=== PATIENT | male | born 1940 | race Caucasian/White ===

== ENCOUNTER 2022-10-30 12:24 | Inpatient (IN) ==
[2022-10-30] MEDS ORDERED: SODIUM CHLORIDE 0.9% 1000ML 500 ML IV ONE ×2 (12:45→14:35)
--- NOTE | 2022-10-30 12:52 | Emergency Department Note ---
Impression & Plan Altered mental status, Somnolence, Acute dehydration, Elevated lactic acid level ED Provider Note NAME: RAIN BRAY AGE: 82 SEX: M : 1940 ARRIVES VIA: Ambulance INFORMANT: [Nursing, EMS] ED PROVIDER(S): [Von Griffith MD] CHIEF COMPLAINT: Unresponsive HISTORY OF PRESENT ILLNESS: The patient is an 82-year-old male who has dementia. He is a DNR. Apparently, he was harder to wake up this morning but then seemed okay at breakfast. He went back to his room for a nap, he did receive some medications prior to laying down. The patient since laying down has been much more somnolent and will not seem to wake up. He is not quite himself. He is described as lethargic. BSG was in the 100s as per EMS. The patient can give no history. The history was obtained from the nurses and EMS. Given the circumstances, no further history obtainable. PMHx/PSHx: See Below SOCIAL HISTORY: See Below. PHYSICAL EXAM: GENERAL: Patient is in no acute distress. HEENT: No acute trauma, normocephalic atraumatic, mucous membranes moist, no nasal congestion. NECK: No stridor, no adenopathy, no meningismus, trachea is midline. LUNGS: Clear to auscultation bilaterally when listening anterior, breath sounds are equal, no respiratory distress. HEART: I cannot really assess heart tones, heart tones are quite distant ABDOMEN: Soft, nontender, bowel sounds positive, no peritonitis. EXTREMITIES: No cyanosis or edema, full range of motion of all the joints without pain or difficulty, no signs for acute trauma. NEUROLOGIC: Somnolent but awakes to loud voice or painful stimuli. Does move all extremities. SKIN: No rash, no jaundice, no diaphoresis. DIFFERENTIAL DIAGNOSIS: Stroke, intracranial bleeding, electrolyte imbalance, dehydration, infection, sepsis, among others. EMERGENCY DEPARTMENT COURSE/PROCEDURES: Prior/Outside records reviewed: EMS records. ECG per my interpretation: Indication was altered mental state. The ECG shows a sinus rhythm with a first-degree AV block. The rate is 81. There is significant baseline artifact. There is no ST elevation. No PVCs. QTc is 476. A potential old septal infarct is seen, potential old inferior infarct is seen. Compared to an ECG from 28 April 2007, lateral T wave inversion is now present. Criteria for old septal infarct are now present. Continuous Cardiac Monitoring per my interpretation: An order was placed for continuous cardiac monitoring. The monitor shows a rate of 82 with sinus rhythm with a first-degree block. MEDICAL DECISION MAKING: There is no leukocytosis or concerning anemia. There is a normal platelet count. Creatinine was elevated at 1.77, this appears baseline for the patient. Lactic acid level was elevated consistent with infection or potentially dehydration. No concerning liver enzyme elevation. Ammonia level was not elevated. Patient's TSH was slightly high however, the T4 was normal. ECG showed a sinus rhythm, no obvious acute ischemia. Cardiac enzyme testing x1 was not consistent with acute cardiac injury. Urinalysis did not show infection. COVID, influenza and RSV test were negative. Brain CT showed no acute bleed or mass effect. CT did suggest some chronic findings. Chest x-ray per my review did not show obvious pneumonia, no concerning CHF. The patient received IV saline, 1 L. He has been resting comfortably. The cause for the change in mental status is not clear. Dehydration, medication reaction are certainly possibilities. Stroke is a possibility although, he does move all extremities fairly equally. I do think further care/work-up is warranted. I spoke with the patient and his family, I talked to case management, the on-call hospitalist was consulted. DISPOSITION: The patient's presentation and findings warrant a hospital stay. Past Med/Surg History Medical History Dementia DVT prophylaxis Social History Smoking Status: Unknown if ever smoked Allergies Allergies Allergy/AdvReac Type Severity Reaction Status Date / Time No Known Allergies Allergy Mild Verified 10/30/22 16:25 Home Meds Home Medications Medication Instructions Recorded Confirmed acetaminophen 325 mg tablet 650 mg PO Q6H PRN PAIN/FEVER > 101F 10/30/22 10/30/22 (Tylenol) aspirin 81 mg tablet,delayed 81 mg PO QAM 10/30/22 10/30/22 release atorvastatin 10 mg tablet 10 mg PO HS 10/30/22 10/30/22 finasteride 5 mg tablet 5 mg PO HS 10/30/22 10/30/22 isosorbide mononitrate 30 mg 30 mg PO QAM 10/30/22 10/30/22 tablet,extended release 24 hr metoprolol tartrate 25 mg tablet 12.5 mg PO BID 10/30/22 10/30/22 olanzapine 2.5 mg tablet 2.5 mg PO Q6H PRN 10/30/22 10/30/22 AGITATION/AGGRESSION quetiapine 25 mg tablet (Seroquel) See Rx Instructions .Route .COMPLEX 10/30/22 10/30/22 sennosides 8.6 mg tablet (senna) 17.2 mg PO HS PRN Constipation 10/30/22 10/30/22 tamsulosin 0.4 mg capsule (Flomax) 0.4 mg PO QAM 10/30/22 10/30/22 Results & Data (ED) Vital Signs Vital Signs - 24 hr 10/30/22 12:40 10/30/22 12:17 10/30/22 12:28 Temperature 35.4 C L Temperature Source Axillary Pulse Rate 73 73 Pulse Rate [Apical] Pulse Rate from SpO2 Sensor Pulse Rhythm Regular Pulse Rhythm [Apical] Pulse Strength [Apical] Respiratory Rate 27 H Respiratory Effort / Characteristics Non-Labored Spontaneous Respiratory Depth Normal Respiratory Pattern Regular Blood Pressure 120/66 Blood Pressure [Right Arm] Blood Pressure Mean 84 Blood Pressure Mean [Right Arm] Blood Pressure Position Lying Pulse Oximetry 96 96 Oxygen Delivery Method Room Air Room Air Oxygen Flow Rate 0 0 Sepsis Recent Fever Within 48 Hours No Sepsis New/Unexplained Change in Mental Status Yes Sepsis Action Taken by Nursing Physician Notified Oxygen Flow Rate - Titration 0 Pulse Oximetry Post Tiitration 96 10/30/22 12:46 10/30/22 12:39 10/30/22 12:40 Temperature Temperature Source Pulse Rate 73 74 Pulse Rate [Apical] Pulse Rate from SpO2 Sensor 73 74 Pulse Rhythm Pulse Rhythm [Apical] Pulse Strength [Apical] Respiratory Rate 12 18 Respiratory Effort / Characteristics Respiratory Depth Respiratory Pattern Blood Pressure Blood Pressure [Right Arm] Blood Pressure Mean Blood Pressure Mean [Right Arm] Blood Pressure Position Pulse Oximetry 96 94 95 Oxygen Delivery Method Room Air Room Air Room Air Oxygen Flow Rate Sepsis Recent Fever Within 48 Hours Sepsis New/Unexplained Change in Mental Status Sepsis Action Taken by Nursing Oxygen Flow Rate - Titration Pulse Oximetry Post Tiitration 10/30/22 12:50 10/30/22 13:00 10/30/22 13:10 Temperature Temperature Source Pulse Rate 76 77 80 Pulse Rate [Apical] Pulse Rate from SpO2 Sensor 76 77 80 Pulse Rhythm Pulse Rhythm [Apical] Pulse Strength [Apical] Respiratory Rate 20 19 16 Respiratory Effort / Characteristics Respiratory Depth Respiratory Pattern Blood Pressure Blood Pressure [Right Arm] Blood Pressure Mean Blood Pressure Mean [Right Arm] Blood Pressure Position Pulse Oximetry 95 95 95 Oxygen Delivery Method Room Air Room Air Room Air Oxygen Flow Rate Sepsis Recent Fever Within 48 Hours Sepsis New/Unexplained Change in Mental Status Sepsis Action Taken by Nursing Oxygen Flow Rate - Titration Pulse Oximetry Post Tiitration 10/30/22 13:20 10/30/22 13:38 10/30/22 13:40 Temperature Temperature Source Pulse Rate 72 93 H 78 Pulse Rate [Apical] Pulse Rate from SpO2 Sensor 71 77 Pulse Rhythm Pulse Rhythm [Apical] Pulse Strength [Apical] Respiratory Rate 11 L 11 L 16 Respiratory Effort / Characteristics Respiratory Depth Respiratory Pattern Blood Pressure Blood Pressure [Right Arm] Blood Pressure Mean Blood Pressure Mean [Right Arm] Blood Pressure Position Pulse Oximetry 97 98 Oxygen Delivery Method Oxygen Flow Rate Sepsis Recent Fever Within 48 Hours Sepsis New/Unexplained Change in Mental Status Sepsis Action Taken by Nursing Oxygen Flow Rate - Titration Pulse Oximetry Post Tiitration 10/30/22 14:28 10/30/22 14:00 10/30/22 14:30 Temperature Temperature Source Pulse Rate 83 Pulse Rate [Apical] 73 Pulse Rate from SpO2 Sensor 85 Pulse Rhythm Pulse Rhythm [Apical] Regular Pulse Strength [Apical] Normal Respiratory Rate 18 24 Respiratory Effort / Characteristics Non-Labored Respiratory Depth Normal Respiratory Pattern Regular Blood Pressure 113/64 Blood Pressure [Right Arm] 113/64 Blood Pressure Mean 80 Blood Pressure Mean [Right Arm] 80 Blood Pressure Position Pulse Oximetry 100 98 Oxygen Delivery Method Room Air Oxygen Flow Rate Sepsis Recent Fever Within 48 Hours Sepsis New/Unexplained Change in Mental Status Sepsis Action Taken by Nursing Oxygen Flow Rate - Titration Pulse Oximetry Post Tiitration 10/30/22 14:30 10/30/22 15:00 10/30/22 15:00 Temperature Temperature Source Pulse Rate 73 81 Pulse Rate [Apical] Pulse Rate from SpO2 Sensor 71 82 Pulse Rhythm Pulse Rhythm [Apical] Pulse Strength [Apical] Respiratory Rate 14 16 Respiratory Effort / Characteristics Respiratory Depth Respiratory Pattern Blood Pressure 139/74 Blood Pressure [Right Arm] Blood Pressure Mean 95 Blood Pressure Mean [Right Arm] Blood Pressure Position Pulse Oximetry 96 98 Oxygen Delivery Method Room Air Room Air Oxygen Flow Rate Sepsis Recent Fever Within 48 Hours Sepsis New/Unexplained Change in Mental Status Sepsis Action Taken by Nursing Oxygen Flow Rate - Titration Pulse Oximetry Post Tiitration 10/30/22 15:30 10/30/22 15:30 10/30/22 16:00 Temperature Temperature Source Pulse Rate 79 Pulse Rate [Apical] Pulse Rate from SpO2 Sensor 75 Pulse Rhythm Pulse Rhythm [Apical] Pulse Strength [Apical] Respiratory Rate 10 L Respiratory Effort / Characteristics Respiratory Depth Respiratory Pattern Blood Pressure 113/67 101/61 Blood Pressure [Right Arm] Blood Pressure Mean 82 74 Blood Pressure Mean [Right Arm] Blood Pressure Position Pulse Oximetry 94 Oxygen Delivery Method Room Air Oxygen Flow Rate Sepsis Recent Fever Within 48 Hours Sepsis New/Unexplained Change in Mental Status Sepsis Action Taken by Nursing Oxygen Flow Rate - Titration Pulse Oximetry Post Tiitration 10/30/22 16:00 10/30/22 16:40 10/30/22 16:30 Temperature Temperature Source Pulse Rate 71 74 Pulse Rate [Apical] Pulse Rate from SpO2 Sensor 72 Pulse Rhythm Pulse Rhythm [Apical] Pulse Strength [Apical] Respiratory Rate 16 Respiratory Effort / Characteristics Respiratory Depth Respiratory Pattern Blood Pressure 129/64 Blood Pressure [Right Arm] Blood Pressure Mean 85 Blood Pressure Mean [Right Arm] Blood Pressure Position Pulse Oximetry 95 Oxygen Delivery Method Oxygen Flow Rate Sepsis Recent Fever Within 48 Hours Sepsis New/Unexplained Change in Mental Status Sepsis Action Taken by Nursing Oxygen Flow Rate - Titration Pulse Oximetry Post Tiitration 10/30/22 16:30 10/30/22 17:00 10/30/22 17:00 Temperature Temperature Source Pulse Rate 75 79 Pulse Rate [Apical] Pulse Rate from SpO2 Sensor 76 77 Pulse Rhythm Pulse Rhythm [Apical] Pulse Strength [Apical] Respiratory Rate 14 15 Respiratory Effort / Characteristics Respiratory Depth Respiratory Pattern Blood Pressure 133/64 Blood Pressure [Right Arm] Blood Pressure Mean 87 Blood Pressure Mean [Right Arm] Blood Pressure Position Pulse Oximetry 99 Oxygen Delivery Method Room Air Oxygen Flow Rate Sepsis Recent Fever Within 48 Hours Sepsis New/Unexplained Change in Mental Status Sepsis Action Taken by Nursing Oxygen Flow Rate - Titration Pulse Oximetry Post Tiitration 10/30/22 17:30 10/30/22 17:31 10/30/22 17:31 Temperature Temperature Source Pulse Rate 91 H 93 H Pulse Rate [Apical] Pulse Rate from SpO2 Sensor 90 95 H Pulse Rhythm Pulse Rhythm [Apical] Pulse Strength [Apical] Respiratory Rate 16 21 Respiratory Effort / Characteristics Respiratory Depth Respiratory Pattern Blood Pressure 152/89 H Blood Pressure [Right Arm] Blood Pressure Mean 110 Blood Pressure Mean [Right Arm] Blood Pressure Position Pulse Oximetry 97 96 Oxygen Delivery Method Room Air Room Air Oxygen Flow Rate Sepsis Recent Fever Within 48 Hours Sepsis New/Unexplained Change in Mental Status Sepsis Action Taken by Nursing Oxygen Flow Rate - Titration Pulse Oximetry Post Tiitration 10/30/22 18:00 10/30/22 18:00 10/30/22 18:30 Temperature 36.8 C Temperature Source Pulse Rate 83 Pulse Rate [Apical] Pulse Rate from SpO2 Sensor 85 Pulse Rhythm Pulse Rhythm [Apical] Pulse Strength [Apical] Respiratory Rate 12 Respiratory Effort / Characteristics Respiratory Depth Respiratory Pattern Blood Pressure 138/68 167/82 H Blood Pressure [Right Arm] Blood Pressure Mean 91 110 Blood Pressure Mean [Right Arm] Blood Pressure Position Pulse Oximetry 98 Oxygen Delivery Method Room Air Oxygen Flow Rate Sepsis Recent Fever Within 48 Hours Sepsis New/Unexplained Change in Mental Status Sepsis Action Taken by Nursing Oxygen Flow Rate - Titration Pulse Oximetry Post Tiitration 10/30/22 18:30 Temperature Temperature Source Pulse Rate Pulse Rate [Apical] Pulse Rate from SpO2 Sensor 91 H Pulse Rhythm Pulse Rhythm [Apical] Pulse Strength [Apical] Respiratory Rate Respiratory Effort / Characteristics Respiratory Depth Respiratory Pattern Blood Pressure Blood Pressure [Right Arm] Blood Pressure Mean Blood Pressure Mean [Right Arm] Blood Pressure Position Pulse Oximetry 95 Oxygen Delivery Method Oxygen Flow Rate Sepsis Recent Fever Within 48 Hours Sepsis New/Unexplained Change in Mental Status Sepsis Action Taken by Nursing Oxygen Flow Rate - Titration Pulse Oximetry Post Tiitration Home Medications Current Medication List: was personally reviewed by me Laboratory Data Attestation: I reviewed the patient's lab results. 10/30/22 12:55 10/30/22 12:55 Lab Results 10/30/22 10/30/22 10/30/22 Range/Units 12:30 12:52 12:52 WBC (4.8-10.8) K/ul RBC (4.70-6.10) M/uL Hgb (14.0-18.0) g/dl Hct (42.0-52.0) % MCV (80.0-100.0) fL MCH (25.0-34.0) pg MCHC (32.0-36.0) g/dL RDW Std Deviation (36.4-46.3) fL RDW Coeff of Tang (11.5-14.5) % Plt Count (130-400) K/uL MPV (9.4-12.4) fL Immature Gran % (Auto) % Neut % (Auto) % Lymph % (Auto) % Terry % (Auto) % Eos % (Auto) % Baso % (Auto) % Neut # (Auto) (1.40-6.50) K/uL Lymph # (Auto) (1.2-3.4) K/uL Terry # (Auto) (0.11-0.59) K/uL Eos # (Auto) (0-0.50) K/uL Baso # (Auto) (0-0.2) K/uL Immature Gran # (Auto) (0.01-0.20) K/uL Sodium (136-145) mmol/L Potassium (3.5-5.1) mmol/L Chloride (98-107) mmol/L Carbon Dioxide (21-32) mmol/L Anion Gap (3-11) BUN (6-23) mg/dl Creatinine (0.6-1.4) mg/dl Est Cr Clr Drug Dosing Est GFR ( Amer) ml/min Est GFR (Non-Af Amer) ml/min BUN/Creatinine Ratio (10-20) Glucose (70-99(Fasting)) mg/dl POC Glucose 168 H (70-99) mg/dl Lactate 3.3 H* (0.4-2.0) mmol/L Calcium (8.5-10.1) mg/dl Magnesium (1.7-2.4) mg/dl Total Bilirubin (0.2-1.0) mg/dl AST (13-39) U/L ALT (7-52) U/L Alkaline Phosphatase (34-104) U/L Ammonia 43.0 (18-72) umol/L Troponin I High Sens (0-20) pg/ml Total Protein (6.0-8.3) gm/dl Albumin (3.4-5.0) gm/dl Globulin (2.5-4.0) gm/dl Albumin/Globulin Ratio (0.9-2) TSH (0.300-4.500) uIu/ml Free T4 (0.61-1.60) ng/dl Urine Color Urine Appearance (Clear) Urine pH (4.5-7.5) Ur Specific [place] (1.000-1.030) Urine Protein (Negative) Urine Glucose (UA) (Negative) Urine Ketones (Negative) Urine Blood (Negative) Urine Nitrite (Negative) Urine Bilirubin (Negative) Urine Urobilinogen (Negative) Ur Leukocyte Esterase (Negative) SARS-CoV-2 (PCR) (Negative) Influenza Type A (PCR) (Neg) Influenza Type B (PCR) (Neg) RSV (RT-PCR) (Neg) 10/30/22 10/30/22 10/30/22 Range/Units 12:55 12:55 12:55 WBC 6.33 (4.8-10.8) K/ul RBC 4.90 (4.70-6.10) M/uL Hgb 14.7 (14.0-18.0) g/dl Hct 44.7 (42.0-52.0) % MCV 91.2 (80.0-100.0) fL MCH 30.0 (25.0-34.0) pg MCHC 32.9 (32.0-36.0) g/dL RDW Std Deviation 46.4 H (36.4-46.3) fL RDW Coeff of Tang 13.8 (11.5-14.5) % Plt Count 154 (130-400) K/uL MPV 11.7 (9.4-12.4) fL Immature Gran % (Auto) 0.8 % Neut % (Auto) 75.1 % Lymph % (Auto) 14.8 % Terry % (Auto) 8.4 % Eos % (Auto) 0.6 % Baso % (Auto) 0.3 % Neut # (Auto) 4.75 (1.40-6.50) K/uL Lymph # (Auto) 0.94 L (1.2-3.4) K/uL Terry # (Auto) 0.53 (0.11-0.59) K/uL Eos # (Auto) 0.04 (0-0.50) K/uL Baso # (Auto) 0.02 (0-0.2) K/uL Immature Gran # (Auto) 0.05 (0.01-0.20) K/uL Sodium 141 (136-145) mmol/L Potassium 4.4 (3.5-5.1) mmol/L Chloride 106 (98-107) mmol/L Carbon Dioxide 27 (21-32) mmol/L Anion Gap 8 (3-11) BUN 19 (6-23) mg/dl Creatinine 1.77 H (0.6-1.4) mg/dl Est Cr Clr Drug Dosing Not Reportable Est GFR ( Amer) 40.0 ml/min Est GFR (Non-Af Amer) 34.5 ml/min BUN/Creatinine Ratio 10.7 (10-20) Glucose 179 H (70-99(Fasting)) mg/dl POC Glucose (70-99) mg/dl Lactate (0.4-2.0) mmol/L Calcium 9.3 (8.5-10.1) mg/dl Magnesium 2.4 (1.7-2.4) mg/dl Total Bilirubin 0.9 (0.2-1.0) mg/dl AST 13 (13-39) U/L ALT 9 (7-52) U/L Alkaline Phosphatase 64 (34-104) U/L Ammonia (18-72) umol/L Troponin I High Sens 10.0 (0-20) pg/ml Total Protein 6.8 (6.0-8.3) gm/dl Albumin 3.9 (3.4-5.0) gm/dl Globulin 2.9 (2.5-4.0) gm/dl Albumin/Globulin Ratio 1.3 (0.9-2) TSH 8.258 H (0.300-4.500) uIu/ml Free T4 1.01 (0.61-1.60) ng/dl Urine Color Urine Appearance (Clear) Urine pH (4.5-7.5) Ur Specific [place] (1.000-1.030) Urine Protein (Negative) Urine Glucose (UA) (Negative) Urine Ketones (Negative) Urine Blood (Negative) Urine Nitrite (Negative) Urine Bilirubin (Negative) Urine Urobilinogen (Negative) Ur Leukocyte Esterase (Negative) SARS-CoV-2 (PCR) (Negative) Influenza Type A (PCR) (Neg) Influenza Type B (PCR) (Neg) RSV (RT-PCR) (Neg) 10/30/22 10/30/22 10/30/22 Range/Units 14:10 14:10 14:59 WBC (4.8-10.8) K/ul RBC (4.70-6.10) M/uL Hgb (14.0-18.0) g/dl Hct (42.0-52.0) % MCV (80.0-100.0) fL MCH (25.0-34.0) pg MCHC (32.0-36.0) g/dL RDW Std Deviation (36.4-46.3) fL RDW Coeff of Tang (11.5-14.5) % Plt Count (130-400) K/uL MPV (9.4-12.4) fL Immature Gran % (Auto) % Neut % (Auto) % Lymph % (Auto) % Terry % (Auto) % Eos % (Auto) % Baso % (Auto) % Neut # (Auto) (1.40-6.50) K/uL Lymph # (Auto) (1.2-3.4) K/uL Terry # (Auto) (0.11-0.59) K/uL Eos # (Auto) (0-0.50) K/uL Baso # (Auto) (0-0.2) K/uL Immature Gran # (Auto) (0.01-0.20) K/uL Sodium (136-145) mmol/L Potassium (3.5-5.1) mmol/L Chloride (98-107) mmol/L Carbon Dioxide (21-32) mmol/L Anion Gap (3-11) BUN (6-23) mg/dl Creatinine (0.6-1.4) mg/dl Est Cr Clr Drug Dosing Est GFR ( Amer) ml/min Est GFR (Non-Af Amer) ml/min BUN/Creatinine Ratio (10-20) Glucose (70-99(Fasting)) mg/dl POC Glucose (70-99) mg/dl Lactate 2.9 H* (0.4-2.0) mmol/L Calcium (8.5-10.1) mg/dl Magnesium (1.7-2.4) mg/dl Total Bilirubin (0.2-1.0) mg/dl AST (13-39) U/L ALT (7-52) U/L Alkaline Phosphatase (34-104) U/L Ammonia (18-72) umol/L Troponin I High Sens (0-20) pg/ml Total Protein (6.0-8.3) gm/dl Albumin (3.4-5.0) gm/dl Globulin (2.5-4.0) gm/dl Albumin/Globulin Ratio (0.9-2) TSH (0.300-4.500) uIu/ml Free T4 (0.61-1.60) ng/dl Urine Color Yellow Urine Appearance Clear (Clear) Urine pH 5.0 (4.5-7.5) Ur Specific [place] 1.017 (1.000-1.030) Urine Protein Negative (Negative) Urine Glucose (UA) Trace H (Negative) Urine Ketones Negative (Negative) Urine Blood Negative (Negative) Urine Nitrite Negative (Negative) Urine Bilirubin Negative (Negative) Urine Urobilinogen Negative (Negative) Ur Leukocyte Esterase Negative (Negative) SARS-CoV-2 (PCR) NEGATIVE (Negative) Influenza Type A (PCR) Negative (Neg) Influenza Type B (PCR) Negative (Neg) RSV (RT-PCR) Negative (Neg) Administered Medications Discontinued Medications Sodium Chloride (Nss 1000ml) 500 mls @ 999 mls/hr IV .Q31M ONE Stop: 10/30/22 13:15 Last Infusion: 10/30/22 14:50 Dose: 0 mls/hr Documented By: Admin: 10/30/22 14:17 Dose: 999 mls/hr Documented By: AM Sodium Chloride (Nss 1000ml) 500 mls @ 999 mls/hr IV .Q31M ONE Stop: 10/30/22 15:05 Last Infusion: 10/30/22 15:37 Dose: 0 mls/hr Documented By: Admin: 10/30/22 15:01 Dose: 999 mls/hr Documented By: PAULO Imaging Data Radiologist's Impression: Head CT 10/30/22 12:45 CT head/brain wo con CLINICAL HISTORY: 82 years-old Male with altered. Acutely altered mental status TECHNIQUE: Multiple axial CT images of the head were obtained without contrast. A dose lowering technique was utilized adhering to the principles of ALARA. CT DOSE: 638.56 mGycm COMPARISON: None. FINDINGS: No acute intracranial hemorrhage, midline shift, intracranial mass, territorial ischemia or abnormal extra-axial collection. Involutional changes with ventriculomegaly transverse dimension of the lateral ventricles measuring 4.5 c m. Cerebral vascular calcifications. White matter hypodensities suggestive of chronic microvascular ischemic disease. Chronic lacunar infarct of the left lentiform nucleus. The calvarium is intact. The paranasal sinuses, mastoid air cells, and middle ear cavities are clear. IMPRESSION: 1. No acute intracranial abnormality identified. 2. Involutional changes with ventriculomegaly which may be on an ex vacuo basis. Normal pressure hydrocephalus could appear similarly. 3. 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 ACT 112: Negative or not required by law. The above report was generated using voice recognition software. It may contain grammatical, syntax or spelling errors. Electronically signed by: Vic Browne M.D. 10/30/2022 1:46 PM Chest X-Ray 10/30/22 12:46 XR chest 1V portable CLINICAL HISTORY: weakness TECHNIQUE: Single frontal radiograph of the chest was obtained. Comparison: None available at the time of this dictation. FINDINGS: Median sternotomy wires are unchanged. Calcified aortic knob is seen. The lungs are clear. No evidence of pleural effusion or pneumothorax. IMPRESSION: No acute chest disease. ACT 112: Negative or not required by law. Electronically signed by: Yao Gonzalez M.D. 10/30/2022 1:31 PM Discharge Plan Visit Data Chief Complaint: Unresponsive Stated Complaint: UNRESPONSIVE ED Provider: Von Griffith Discharge Problem: Altered mental status, Somnolence, Acute dehydration, Elevated lactic acid level Patient Disposition: Admitted As Inpatient Condition: Fair Forms Stand Alone Forms: [facility] Prescriptions Prescriptions: No Action quetiapine [Seroquel] 25 mg Tablet See Rx Instructions .ROUTE .COMPLEX Rx Instructions: 25 mg orally; TAKES 25 MG QAM, THEN 50 MG HS. sennosides [senna] 8.6 mg Tablet 17.2 mg PO HS PRN (Reason: Constipation) acetaminophen [Tylenol] 325 mg Tablet 650 mg PO Q6H PRN (Reason: PAIN/FEVER > 101F) atorvastatin 10 mg Tablet 10 mg PO HS isosorbide mononitrate 30 mg Tablet Extended Release 24 Hr 30 mg PO QAM olanzapine 2.5 mg Tablet 2.5 mg PO Q6H PRN (Reason: AGITATION/AGGRESSION) aspirin 81 mg Tablet,Delayed Release (Dr/Ec) 81 mg PO QAM tamsulosin [Flomax] 0.4 mg Capsule 0.4 mg PO QAM finasteride 5 mg Tablet 5 mg PO HS metoprolol tartrate 25 mg Tablet 12.5 mg PO BID Referrals Referrals: Tanya Dunlap [Primary Care Provider] -
--- NOTE | 2022-10-30 13:33 | XRay Report ---
XR chest 1V portable CLINICAL HISTORY: weakness TECHNIQUE: Single frontal radiograph of the chest was obtained. Comparison: None available at the time of this dictation. FINDINGS: Median sternotomy wires are unchanged. Calcified aortic knob is seen. The lungs are clear. No evidenc e of pleural effusion or pneumothorax. IMPRESSION: No acute chest disease. ACT 112: Negative or not required by law. Electronically signed by: Yao Gonzalez M.D. 10/30/2022 1:31 PM
[2022-10-30 13:36] LABS: Basophils # (auto) 0.02 K/uL (0-0.2); Basophils % (auto) 0.3 %; Eosinophils # (auto) 0.04 K/uL (0-0.50); Eosinophils % (auto) 0.6 %; Hematocrit (blood only) 44.7 % (42.0-52.0); Hemoglobin 14.7 g/dl (14.0-18.0); Immature Granulocytes # (auto) 0.05 K/uL (0.01-0.20); Immature Granulocytes % (auto) 0.8 %; Lymphocytes # (auto) 0.94 K/uL (1.2-3.4); Lymphocytes % (auto) 14.8 %; Mean Corpuscular Hgb Conc 32.9 g/dL (32.0-36.0); Mean Corpuscular Volume 91.2 fL (80.0-100.0); Mean Platelet Volume 11.7 fL (9.4-12.4); Monocytes # (auto) 0.53 K/uL (0.11-0.59); Monocytes % (auto) 8.4 %; Neutrophils # (auto) 4.75 K/uL (1.40-6.50); Neutrophils % (auto) 75.1 %; Platelet Count 154 K/uL (130-400); RDW Coefficient of Variation 13.8 % (11.5-14.5); RDW Standard Deviation 46.4 fL (36.4-46.3); White Blood Count 6.33 K/ul (4.8-10.8)
--- NOTE | 2022-10-30 13:48 | CT Scan Report ---
CT head/brain wo con CLINICAL HISTORY: 82 years-old Male with altered. Acutely altered mental status TECHNIQUE: Multiple axial CT images of the head were obtained without contrast. A dose lowering tech nique was utilized adhering to the principles of ALARA. CT DOSE: 638.56 mGycm COMPARISON: None. FINDINGS: No acute intracranial hemorrhage, midline shift, intracranial mass, territorial ischemia or abnormal extra-axial collection. Involutional changes with ventriculomegaly transverse dimension of the latera l ventricles measuring 4.5 cm. Cerebral vascular calcifications. White matter hypodensities suggestiv e of chronic microvascular ischemic disease. Chronic lacunar infarct of the left lentiform nucleus. The calvarium is intact. The paranasal sinuses, mastoid air cells, and middle ear cavities are clear . IMPRESSION: 1. No acute intracranial abnormality identified. 2. Involutional changes with ventriculomegaly which may be on an ex vacuo basis. Normal pressure hydr ocephalus could appear similarly. 3. 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 ACT 112: Negative or not required by law. The above report was generated using voice recognition software. It may contain grammatical, syntax o r spelling errors. Electronically signed by: Vic Browne M.D. 10/30/2022 1:46 PM
[2022-10-30 13:51] LABS: Alanine Aminotransferase 9 U/L (7-52); Albumin Globulin Ratio 1.3 (0.9-2); Albumin Level 3.9 gm/dl (3.4-5.0); Alkaline Phosphatase 64 U/L (34-104); Anion Gap 8 (3-11); Aspartate Aminotransferase 13 U/L (13-39); BUN Creatinine Ratio 10.7 (10-20); Bilirubin,Total 0.9 mg/dl (0.2-1.0); Blood Urea Nitrogen 19 mg/dl (6-23); Calcium 9.3 mg/dl (8.5-10.1); Carbon Dioxide 27 mmol/L (21-32); Chloride 106 mmol/L (98-107); Est GFR (Non-African American) 34.5 ml/min; Globulin 2.9 gm/dl (2.5-4.0); Glucose 179 mg/dl (70-99(Fasting)); Magnesium 2.4 mg/dl (1.7-2.4); Potassium 4.4 mmol/L (3.5-5.1); Sodium 141 mmol/L (136-145); Total Protein 6.8 gm/dl (6.0-8.3)
[2022-10-30 14:03] LABS: Thyroid Stimulating Hormone 8.258 uIu/ml (0.300-4.500)
[2022-10-30 14:39] LABS: T4 Free Thyroxine 1.01 ng/dl (0.61-1.60)
[2022-10-30 15:06] LABS: Appearance Urine Clear (Clear); Bilirubin Urine Negative (Negative); Blood Urine Negative (Negative); Color Urine Yellow; Glucose Urine UA Trace (Negative); Ketones Urine Negative (Negative); Leukocyte Esterase Urine Negative (Negative); Nitrite Urine Negative (Negative); Protein Urine Negative (Negative); Specific Gravity Urine 1.017 (1.000-1.030); Urobilinogen Urine Negative (Negative)
[2022-10-30 15:07] LABS: Influenza A virus by PCR Negative (Neg); Influenza B virus by PCR Negative (Neg); RSV by PCR Negative (Neg); SARS CoV2 RNA(COVID-19) Ceph NEGATIVE (Negative)
--- NOTE | 2022-10-30 15:30 | Electrocardiogram Report ---
Test Reason : Blood Pressure : / mmHG Vent. Rate : 081 BPM Atrial Rate : 081 BPM P-R Int : 246 ms QRS Dur : 100 ms QT Int : 410 ms P-R-T Axes : 068 -14 117 degrees QTc Int : 476 ms Poor data quality, interpretation may be adversely affected Sinus rhythm with 1st degree A-V block Low voltage QRS Inferior infarct (cited on or before 28-APR-2007) Cannot rule out Anterior infarct , age undetermined Nonspecific ST and T wave abnormality Abnormal ECG When compared with ECG of 28-APR-2007 16:21, [place] interval has increased Minimal criteria for Anterior infarct are now Present Nonspecific T wave abnormality no longer evident in Inferior leads T wave inversion now evident in Lateral leads Confirmed by Yonathan Rodriguez ([id number]) on 10/30/2022 3:29:53 PM Referred By: Tanya [facility] Confirmed By:Yonathan Rodriguez
--- NOTE | 2022-10-30 18:23 | History & Physical Report ---
Date of Service October 30, 2022 Assessment & Plan (1) Altered behavior: Plan: Superimposed on baseline of what sounds to be severe dementia with some behavioral disturbance. -Fortunately does not show any overt signs or symptoms of sepsis/active infection. Serial exams and vigilancebut no clear role for empiric antibiotics at this time. Sometimes mild viral illnesses can lead to delirium in patients with fairly severe dementiathis would be quite difficult to rule in or out -No lateralizing signs or symptoms on exam to suggest cerebrovascular cause, CT head reassuring and ruling out bleed -Creatinine elevated at 1.7the only other reading I have is from about 2 weeks ago with no clinical contextit is possible that dehydration/MILLICENT are at play. Certainly even with his degree of dementia he could have dehydration without an MILLICENT leading to a delirium. Stiffness on exam nonspecific, but check CPK. He is not hyperthermic or overtly rigidi.e. I doubt anything neuroleptic is at play. Slightly elevated TSH in the context of a normal free T4 is nonspecificrecheck in a few weeks. Certainly does not appear to be contributory to his symptom complex -Has quetiapine and olanzapine as part of his home medication listit is possible that a dose of olanzapine may have caused excess sedation -While he recently changed living environments a few times, it sounds like he has been stable/acclimating to his new environment over the last few weeksso I doubt changing environments is purely the cause ---> Observe on medical, gently hydrate, serial exams. Updated , discussed delirium as working diagnosis, discussed the nature of delirium as often having to follow their own course, frequently "outlasting" the problems that incited the delirium to begin with. As far as his past medical history which appears to be coronary disease and BPH based on his medicationsfor now continue his aspirin, Lipitor, finasteride, Imdur, metoprolol, and Flomax) (2) DVT prophylaxis: Plan: Heparin subcu (3) Discharge planning issues: Plan: Observe on medical, PT/OT eval and treat, comes from [place], hopefully will be able to return to his previous living environment. History of Present Illness Chief Complaint: Poorly responsive Primary Care Provider: [facility] No meaningful HPI review of systems obtainable from patient. He opens eyes occasionally, but not to command. In discussion with ER physician, he was difficult to arouse at his care facility earlier today, so they brought him to the ER. In discussion with his , she does not really give any acuteness to his HPI, noting however, that he was at [facility] for a little while, but she did not like the care he was receiving, so she moved him to [place]. This was about 2 weeks or so ago, since that time he has adjusted reasonably well to his new environment, and she did not necessarily notice anything new/different about him recently. As far as his baseline, it sounds like he is somewhat verbal and a little bit situationally aware, but does not really able to have any depth of awareness anymore. She is uncertain the type of his dementia, but notes that it progressed slowly over years to where he would get too agitated and to unruly for her to be able to take care of him anymore. Allergies Allergy/AdvReac Type Severity Reaction Status Date / Time No Known Allergies Allergy Mild Verified 10/30/22 16:25 Home Medications Medication Instructions Recorded Confirmed Type acetaminophen 325 mg tablet 650 mg PO Q6H PRN PAIN/FEVER > 101F 10/30/22 10/30/22 History (Tylenol) aspirin 81 mg tablet,delayed 81 mg PO QAM 10/30/22 10/30/22 History release atorvastatin 10 mg tablet 10 mg PO HS 10/30/22 10/30/22 History finasteride 5 mg tablet 5 mg PO HS 10/30/22 10/30/22 History isosorbide mononitrate 30 mg 30 mg PO QAM 10/30/22 10/30/22 History tablet,extended release 24 hr metoprolol tartrate 25 mg tablet 12.5 mg PO BID 10/30/22 10/30/22 History olanzapine 2.5 mg tablet 2.5 mg PO Q6H PRN 10/30/22 10/30/22 History AGITATION/AGGRESSION quetiapine 25 mg tablet (Seroquel) See Rx Instructions .Route .COMPLEX 10/30/22 10/30/22 History sennosides 8.6 mg tablet (senna) 17.2 mg PO HS PRN Constipation 10/30/22 10/30/22 History tamsulosin 0.4 mg capsule (Flomax) 0.4 mg PO QAM 10/30/22 10/30/22 History Past Med/Surg History Social History Smoking Status: Unknown if ever smoked Review of Systems Review of Systems: Unobtainable due to cognitive status Physical Exam Physical Exam: Sleeping in bed, occasionally opens eyes, but somewhat irregularly so. Does not appear to be in any distress. HEENT normocephalic atraumatic hard to gauge mucous membranes because he has his mouth closed fairly tightly, his skin does appear dry. Cardio is regular without rubs murmurs or gallops. Lungs clear to auscultation bilaterally no rales rhonchi or wheezes with moderate spontaneous effort no accessory muscle use. Abdomen is soft nondistended appears to be nontenderthere is no area that seems to cause him to grimace or wince, there is no guarding or rigidity. Extremities show no cyanosis clubbing or edema, he shows no tenderness anywhere. He has a fairly rigid resting muscle tonebut equal upper and lower extremities bilaterally, and a question a bit of cogwheeling. He shows no asymmetric/focal weakness or droopiness or asymmetric muscle tone. Unable to fully assess sensation. Musculoskeletal exam shows no gross lesions. Skin is dry, no pallor or icterus. Mental status is as abovewhere he is nonverbal and opens his eyes somewhat irregularly. CBC, CMP, lactate, ammonia, troponin, urinalysis, TSH/free T4, flu swab, COVID/RSV swabs, chest x-ray, EKG, head CT all reviewed. Results & Data Results & Data ([facility]) Vital Signs (Past 12 Hours) Vital Signs Temp Pulse Pulse Resp BP BP Pulse Ox 10/30/22 17:31 93 H 21 96 10/30/22 17:31 152/89 H 10/30/22 17:30 91 H 16 97 10/30/22 17:00 79 15 10/30/22 17:00 133/64 10/30/22 16:30 75 14 99 10/30/22 16:30 129/64 10/30/22 16:40 74 10/30/22 16:00 71 16 95 10/30/22 16:00 101/61 10/30/22 15:30 79 10 L 94 10/30/22 15:30 113/67 10/30/22 15:00 81 16 98 10/30/22 15:00 139/74 10/30/22 14:30 73 14 96 10/30/22 14:30 113/64 10/30/22 14:00 83 24 98 10/30/22 14:28 73 18 113/64 100 10/30/22 13:40 78 16 98 10/30/22 13:38 93 H 11 L 10/30/22 13:20 72 11 L 97 10/30/22 13:10 80 16 95 10/30/22 13:00 77 19 95 10/30/22 12:50 76 20 95 10/30/22 12:40 74 18 95 10/30/22 12:39 73 12 94 10/30/22 12:46 96 10/30/22 12:28 96 10/30/22 12:17 95.7 F L 73 27 H 120/66 96 10/30/22 12:40 73 O2 Del Method O2 Flow Rate 10/30/22 17:31 Room Air 10/30/22 17:31 10/30/22 17:30 Room Air 10/30/22 17:00 10/30/22 17:00 10/30/22 16:30 Room Air 10/30/22 16:30 10/30/22 16:40 10/30/22 16:00 10/30/22 16:00 10/30/22 15:30 Room Air 10/30/22 15:30 10/30/22 15:00 Room Air 10/30/22 15:00 10/30/22 14:30 Room Air 10/30/22 14:30 10/30/22 14:00 Room Air 10/30/22 14:28 10/30/22 13:40 10/30/22 13:38 10/30/22 13:20 10/30/22 13:10 Room Air 10/30/22 13:00 Room Air 10/30/22 12:50 Room Air 10/30/22 12:40 Room Air 10/30/22 12:39 Room Air 10/30/22 12:46 Room Air 10/30/22 12:28 Room Air 0 10/30/22 12:17 Room Air 0 10/30/22 12:40 Code Status & VTE Plan VTE Prophylaxis Plan VTE Prophylaxis will be ordered: Yes PG Care Time/CCT Total # of Minutes Spent Total Time Spent with Patient: Total time spent is greater than 50% in coordination of care (as documented) at patient's floor/unit and/or counseling patient: Coding Level of Care Code 72566 INT INP/OBS CARE MIN Diagnoses Altered behavior R46.89 DVT prophylaxis Z29.9 Discharge planning issues Z02.9
[2022-10-30 19:39] LABS: Creatine Kinase 50 U/L (30-223)
[2022-10-30] MEDS ORDERED: ONDANSETRON INJ 2 MG/ML 2 ML VIAL IV PRN (20:36)
[2022-10-30] MEDS ORDERED: POLYETHYLENE (MIRALAX) 17 GM PACK PO PRN (20:36)
[2022-10-30] MEDS ORDERED: OLANZAPINE 2.5 MG TAB PO PRN (20:36)
[2022-10-30] MEDS ORDERED: SENNA 8.6 MG TAB PO PRN (20:36)
[2022-10-30] MEDS ORDERED: ACETAMINOPHEN 325 MG TAB PO PRN (20:36)
[2022-10-30] MEDS ORDERED: ALUMINUM/MAGNESIUM SUSP 30 ML UDC PO PRN (20:36)
[2022-10-30] MEDS: METOPROLOL TARTRATE 25 MG TAB PO SCH (21:18)
[2022-10-30] MEDS: HEPARIN SOD 5,000 UNIT/0.5 ML VIAL SQ SCH (21:18)
[2022-10-30] MEDS: ATORVASTATIN 10 MG TAB PO SCH (21:18)
[2022-10-30] MEDS: QUEtiapine FUMARATE 25 MG TABLET PO SCH (21:18)
[2022-10-30] MEDS: FINASTERIDE 5 MG TAB PO SCH (21:18)
[2022-10-30] MEDS: LACTATED RINGER'S 1,000 ML IV SCH (21:32)
[2022-10-31] MEDS: HEPARIN SOD 5,000 UNIT/0.5 ML VIAL SQ SCH ×2 (08:31→20:25)
[2022-10-31] MEDS: TAMSULOSIN HCL 0.4 MG CAP PO SCH (08:31)
[2022-10-31] MEDS: QUEtiapine FUMARATE 25 MG TABLET PO SCH ×2 (08:31→20:26)
[2022-10-31] MEDS: ASPIRIN 81 MG ECTAB PO SCH (08:32)
[2022-10-31] MEDS: METOPROLOL TARTRATE 25 MG TAB PO SCH ×2 (08:32→20:35)
[2022-10-31] MEDS: ISOSORBIDE MONO EXTENDED REL 30 MG TABCR PO SCH (08:32)
[2022-10-31 09:00] LABS: Basophils # (auto) 0.03 K/uL (0-0.2); Basophils % (auto) 0.5 %; Eosinophils # (auto) 0.17 K/uL (0-0.50); Eosinophils % (auto) 3.1 %; Hematocrit (blood only) 37.8 % (42.0-52.0); Hemoglobin 12.7 g/dl (14.0-18.0); Immature Granulocytes # (auto) 0.02 K/uL (0.01-0.20); Immature Granulocytes % (auto) 0.4 %; Lymphocytes # (auto) 1.26 K/uL (1.2-3.4); Mean Corpuscular Hemoglobin 30.1 pg (25.0-34.0); Mean Corpuscular Hgb Conc 33.6 g/dL (32.0-36.0); Mean Corpuscular Volume 89.6 fL (80.0-100.0); Mean Platelet Volume 11.2 fL (9.4-12.4); Monocytes # (auto) 0.53 K/uL (0.11-0.59); Monocytes % (auto) 9.7 %; Neutrophils # (auto) 3.47 K/uL (1.40-6.50); Neutrophils % (auto) 63.3 %; Platelet Count 160 K/uL (130-400); RDW Coefficient of Variation 13.8 % (11.5-14.5); RDW Standard Deviation 45.1 fL (36.4-46.3); Red Blood Count 4.22 M/uL (4.70-6.10); White Blood Count 5.48 K/ul (4.8-10.8)
[2022-10-31 09:22] LABS: Anion Gap 5 (3-11); BUN Creatinine Ratio 13.2 (10-20); Blood Urea Nitrogen 18 mg/dl (6-23); Calcium 8.6 mg/dl (8.5-10.1); Carbon Dioxide 27 mmol/L (21-32); Chloride 109 mmol/L (98-107); Est GFR (Non-African American) 47.4 ml/min; Glucose 103 mg/dl (70-99(Fasting)); Sodium 141 mmol/L (136-145)
[2022-10-31] MEDS: LACTATED RINGER'S 1,000 ML IV SCH ×2 (09:35→21:34)
--- NOTE | 2022-10-31 19:00 | Hospitalist Progress Note ---
Date of Service October 31, 2022 Assessment & Plan (1) Altered behavior: Plan: Superimposed on baseline of what sounds to be severe dementia with some behavioral disturbance. -No signs or symptoms of infection ongoingsuspect this was all due to dehydration. -No lateralizing signs or symptoms on exam to suggest cerebrovascular cause, CT head reassuring and ruling out bleed -Creatinine elevated at 1.7on admission, has improved to 1.36 with fluidsstrongly suspect dehydration/azotemia was the cause of his delirium/metabolic encephalopathy. Slightly elevated TSH in the context of a normal free T4 is nonspecificrecheck in a few weeks. Certainly does not appear to be contributory to his symptom complex -Has quetiapine and olanzapine as part of his home medication listit is possible that a dose of olanzapine may have caused excess sedation, but far more likely related to the dehydrationjust would want him followed closely with dosing as an outpatient. -While he recently changed living environments a few times, it sounds like he has been stable/acclimating to his new environment over the last few weeksso I doubt changing environments is purely the cause ---> Extensive discussion with on following/tracking/encouraging hydration, and the difficulties of this in a geriatric patient with dementia. Case management coordinating with his personal care on the feasibility of return to his current home environment. As far as his past medical history which appears to be coronary disease and BPH based on his medicationsfor now continue his aspirin, Lipitor, finasteride, Imdur, metoprolol, and Flomax) (2) DVT prophylaxis: Plan: Heparin subcu (3) Discharge planning issues: Plan: PT/OT eval and treat, case management/personal care working on feasibility of return home versus needing higher level of care. Admission and Anticipated Discharge Date Admission Date: October 30, 2022 Subjective No meaningful HPI or review of systems from patient. at the bedsideupdated the best my ability and to her satisfaction, answered all questions the best my ability. Review of Systems Review of Systems: Unobtainable due to cognitive status Physical Exam Physical Exam: Opens eyes more today, still no meaningful interaction but no distress. HEENT normocephalic atraumatic mucous membranes moist. Cardio is regular no rubs murmurs gallops. Lungs clear to auscultation bilaterally no rales rhonchi or wheezes moderate spontaneous effort no accessory muscle use. Abdomen soft nondistended nontender. Muscle tone much more relaxed than yesterday, and far less of a question of cogwheeling or rigidity. Neuro shows cranial nerves II through XII be grossly intact gross motor is intact as best can be assessed by resting muscle tone, sensory really hard to assess due to his mentation. Results & Data Results & Data ([facility]) Vital Signs (Past 12 Hours) Vital Signs Temp Pulse Resp BP Pulse Ox O2 Del Method 10/31/22 15:00 97.7 F 84 18 131/77 96 Room Air 10/31/22 07:33 98.2 F 84 16 155/78 H 93 Room Air PG Care Time/CCT Total # of Minutes Spent Total Time Spent with Patient: Total time spent is greater than 50% in coordination of care (as documented) at patient's floor/unit and/or counseling patient: Coding Level of Care Code 89734 SUB INP/OBS CARE 3/50MIN Diagnoses Altered behavior R46.89 DVT prophylaxis Z29.9 Discharge planning issues Z02.9
[2022-10-31] MEDS: FINASTERIDE 5 MG TAB PO SCH (20:26)
[2022-10-31] MEDS: ATORVASTATIN 10 MG TAB PO SCH (20:26)
[2022-11-01] MEDS: METOPROLOL TARTRATE 25 MG TAB PO SCH ×2 (08:50→20:33)
[2022-11-01] MEDS: QUEtiapine FUMARATE 25 MG TABLET PO SCH ×2 (08:51→20:33)
[2022-11-01] MEDS: HEPARIN SOD 5,000 UNIT/0.5 ML VIAL SQ SCH ×2 (08:51→20:32)
[2022-11-01] MEDS: TAMSULOSIN HCL 0.4 MG CAP PO SCH (08:51)
[2022-11-01] MEDS: ISOSORBIDE MONO EXTENDED REL 30 MG TABCR PO SCH (09:50)
[2022-11-01] MEDS: ASPIRIN 81 MG ECTAB PO SCH (09:50)
[2022-11-01 10:09] LABS: Anion Gap 6 (3-11); BUN Creatinine Ratio 11.4 (10-20); Blood Urea Nitrogen 15 mg/dl (6-23); Calcium 8.8 mg/dl (8.5-10.1); Carbon Dioxide 27 mmol/L (21-32); Chloride 107 mmol/L (98-107); Est GFR (Non-African American) 49.2 ml/min; Glucose 166 mg/dl (70-99(Fasting)); Potassium 3.8 mmol/L (3.5-5.1); Sodium 140 mmol/L (136-145)
[2022-11-01] MEDS: LACTATED RINGER'S 1,000 ML IV SCH ×2 (10:39→22:58)
--- NOTE | 2022-11-01 13:47 | Hospitalist Progress Note ---
Date of Service November 01, 2022 Assessment & Plan (1) Altered behavior: Plan: Acute change in mental status superimposed on baseline of what sounds to be severe dementia with some behavioral disturbance. -No signs or symptoms of infection ongoingsuspect this was all due to dehydration. -No lateralizing signs or symptoms on exam to suggest cerebrovascular cause, CT head reassuring and ruling out bleed -Creatinine elevated at 1.7on admission, has improved with fluidsstrongly suspect dehydration/azotemia was the cause of his delirium/metabolic encephalopathy. - Slightly elevated TSH , normal free T4. Recheck in 4-6 weeks. -Has quetiapine and olanzapine as part of his home medication listit is possible that a dose of olanzapine may have caused excess sedation, but far more likely related to the dehydration; follow up outpatient to look at adjusting dos es -While he recently changed living environments a few times, it sounds like he has been stable/acclimating to his new environment over the last few weeksso I doubt changing environments is purely the cause Plan: continue LR@80mL/hr, stable for discharge pending Case management coordinating with his personal care on the feasibility of return to his current home environment. Based on medication list; past medical history appears to be coronary disease and BPH based on his medications; continue aspirin, Lipitor, finasteride, Imdur, metoprolol, and Flomax (2) DVT prophylaxis: Plan: Heparin subcu (3) Discharge planning issues: Plan: PT/OT eval and treat, case management/personal care working on feasibility of return home versus needing higher level of care. Admission and Anticipated Discharge Date Admission Date: October 30, 2022 Supervising Physician Co-Signing Physician Notes I personally examined the patient and verified all welsh points of history and exam, discussed case, and agree with decision making with Dr Guevara. No meaningful HPI review of systems obtainable. Vitals noted, in general he is sleeping no distress. Cardio is regular without rubs murmurs or gallops. Lungs clear to auscultation bilaterally no rales rhonchi or wheeze with good effort. Abdomen seems to be soft. Skin without rashes pallor or icterus. Delirium/metabolic encephalopathysuperimposed on dementiadue to dehydration as evidenced by MILLICENT which has improved with IV fluids. Continue current care. Case management working with his personal care to see if he will be able to return there or needs SNF. Otherwise as above. Subjective No meaningful HPI obtained from pt. Review of Systems Review of Systems: Unobtainable due to cognitive status Physical Exam Physical Exam: Constitutional: well-appearing, no acute distress HEENT: NCAT, no conjunctival injection CV: regular rhythm, no murmur appreciated, extremities well-perfused Resp: CTABL, no wheezes/rales/rhonchi appreciated, no increased work of breathing Skin: warm, dry, no rash appreciated Results & Data Results & Data ([facility]) Vital Signs (Past 12 Hours) Vital Signs Temp Pulse Resp BP Pulse Ox O2 Del Method 11/01/22 07:43 36.6 C 88 18 185/104 H 94 Room Air Resident Activity Tracking Resident Involvement: Resident Care Provided Care Provided: Adult Hospital Medicine
--- NOTE | 2022-11-01 20:26 | Billing Data ---
Date of Service November 01, 2022 Coding Level of Care Code 85942 SUB INP/OBS CARE
[2022-11-01] MEDS: ATORVASTATIN 10 MG TAB PO SCH (20:33)
[2022-11-01] MEDS: FINASTERIDE 5 MG TAB PO SCH (20:33)
--- NOTE | 2022-11-02 07:50 | Hospitalist Progress Note ---
Date of Service November 02, 2022 Assessment & Plan (1) Altered behavior: (2) DVT prophylaxis: (3) Discharge planning issues: Plan Mahesh is a 82M with CAD and BPH who presented for evaluation of altered mental status and behavioral changes. Acute Delirium on Chronic Dementia (Altered Behavior) - Acute change in mental status superimposed on baseline of what sounds to be severe dementia with some behavioral disturbance - Infectious and neurologic workup unremarkable, most likely 2/2 dehydration - Consideration given to effects of home Quetiapine/Olanzapine - Consideration given to patient's recent environmental changes - Cr 1.7 on admission, decreasing w/ IV hydration, d/c fluids 3/4 as patient appears euvolemic --- Discontinue IVF, continue to follow fluid status --- CM following for disposition planning Continue Home Aspirin, Lipitor, Finasteride, Imdur, Metoprolol, and Flomax FEN: d/c IVF, Regular (minced/moist) Code status: DNR/DNI DVT ppx: Heparin SQ Isolation: None Dispo:Med, PT/OT eval, CM working with PC to return vs transition to higher level care Admission and Anticipated Discharge Date Admission Date: November 01, 2022 Supervising Physician Co-Signing Physician Notes I personally examined the patient and verified all welsh points of history and exam, discussed case, and agree with decision making with Dr Marie No meaningful HPI review of systems obtainable. Vitals noted, in general he is sleeping no distress. Cardio is regular without rubs murmurs or gallops. Lungs clear to auscultation bilaterally no rales rhonchi or wheeze with good effort. Abdomen soft and seems to be nontender. Skin without rashes pallor or icterus. Delirium/metabolic encephalopathysuperimposed on dementiadue to dehydration as evidenced by MILLICENT which has improved with IV fluids. following off fluids. Continue current care. Case management working with his personal care to see if he will be able to return there or needs SNF. Otherwise as above. Subjective 3/4: No meaningful HPI. Patient awake, brief attempts to mouth words. Review of Systems Review of Systems: As per HPI Physical Exam Physical Exam: Gen: NAD, alert, interactive HEENT: Supple, no JVD Resp:Non-labored, no wheezing/rhonchi/rales, CTAB CV:RRR, normal S1/S2, no M/R/G Abd: Soft, non-distended, no TTP, normoactive bowels, no masses Extr: 2+ dp bilaterally, no edema Skin: No rashes lesions or erythema Results & Data Results & Data ([facility]) Vital Signs (Past 12 Hours) Vital Signs Temp Pulse Resp BP Pulse Ox O2 Del Method 11/01/22 20:31 36.6 C 77 16 152/81 H 95 Room Air 11/01/22 19:57 Room Air Resident Activity Tracking Resident Involvement: Resident Care Provided Care Provided: Adult Hospital Medicine
[2022-11-02] MEDS: ISOSORBIDE MONO EXTENDED REL 30 MG TABCR PO SCH (08:09)
[2022-11-02] MEDS: ASPIRIN 81 MG ECTAB PO SCH (08:09)
[2022-11-02] MEDS: TAMSULOSIN HCL 0.4 MG CAP PO SCH (08:09)
[2022-11-02] MEDS: QUEtiapine FUMARATE 25 MG TABLET PO SCH ×2 (08:10→21:16)
[2022-11-02] MEDS: METOPROLOL TARTRATE 25 MG TAB PO SCH ×2 (08:10→21:17)
[2022-11-02] MEDS: HEPARIN SOD 5,000 UNIT/0.5 ML VIAL SQ SCH ×2 (08:10→21:15)
[2022-11-02 08:38] LABS: Anion Gap 5 (3-11); Calcium 8.9 mg/dl (8.5-10.1); Carbon Dioxide 29 mmol/L (21-32); Chloride 108 mmol/L (98-107); Potassium 4.1 mmol/L (3.5-5.1); Sodium 142 mmol/L (136-145)
[2022-11-02 08:43] LABS: BUN Creatinine Ratio 11.7 (10-20); Blood Urea Nitrogen 16 mg/dl (6-23); Est GFR (African American) 54.5 ml/min; Glucose 97 mg/dl (70-99(Fasting))
[2022-11-02] MEDS: LACTATED RINGER'S 1,000 ML IV SCH (11:17)
--- NOTE | 2022-11-02 19:06 | Billing Data ---
Date of Service November 02, 2022 Coding Level of Care Code 49089 SUB INP/OBS CARE
--- NOTE | 2022-11-02 19:07 | Billing Data ---
Date of Service November 02, 2022 Coding Level of Care Code 73487 SUB INP/OBS CARE
[2022-11-02] MEDS: FINASTERIDE 5 MG TAB PO SCH (21:16)
[2022-11-02] MEDS: ATORVASTATIN 10 MG TAB PO SCH (21:17)
[2022-11-03 06:56] LABS: Hematocrit (blood only) 42.9 % (42.0-52.0); Hemoglobin 14.6 g/dl (14.0-18.0); Mean Corpuscular Volume 88.3 fL (80.0-100.0); Platelet Count 163 K/uL (130-400); RDW Coefficient of Variation 13.4 % (11.5-14.5); RDW Standard Deviation 43.2 fL (36.4-46.3); Red Blood Count 4.86 M/uL (4.70-6.10)
--- NOTE | 2022-11-03 07:05 | Hospitalist Progress Note ---
Date of Service November 03, 2022 Assessment & Plan (1) Altered behavior: (2) DVT prophylaxis: (3) Discharge planning issues: Plan Mahesh is a 82M with CAD and BPH who presented for evaluation of altered mental status and behavioral changes. Acute Delirium on Chronic Dementia (Altered Behavior) - Acute change in mental status superimposed on baseline of what sounds to be severe dementia with some behavioral disturbance - Infectious and neurologic workup unremarkable, most likely 2/2 dehydration - Consideration given to effects of home Quetiapine/Olanzapine - Consideration given to patient's recent environmental changes - Cr 1.7 on admission, decreasing w/ IV hydration, d/c fluids 3/4 as patient appears euvolemic - IVF discontinued --- Continue to follow fluid status, encourage PO fluid intake --- CM following for disposition planning (personal care vs skilled) Continue Home Aspirin, Lipitor, Finasteride, Imdur, Metoprolol, and Flomax FEN: d/c IVF, Regular (minced/moist) Code status: DNR/DNI DVT ppx: Heparin SQ Isolation: None Dispo:Med, PT/OT eval, CM working with PC to return vs transition to higher level care Admission and Anticipated Discharge Date Admission Date: November 01, 2022 Supervising Physician Co-Signing Physician Notes I personally examined the patient and verified all welsh points of history and exam, discussed case, and agree with decision making with Dr Marie No meaningful HPI review of systems obtainable. second visit he is more awake, follows better, makes eye contact better than at any visit i have seen him since admission. Vitals noted, in general he is sleeping no distress. Cardio is regular without rubs murmurs or gallops. Lungs clear to auscultation bilaterally no rales rhonchi or wheeze with good effort. Abdomen soft and seems to be nontender. Skin without rashes pallor or icterus. Delirium/metabolic encephalopathysuperimposed on dementiadue to dehydration as evidenced by MILLICENT which has improved with IV fluids. following off fluids. Continue current care. Case management working with his personal care to see if he will be able to return there or needs SNF. Low blood pressure noted after it had resolved. Reevaluated and he looks better than I have seen him. Nursing wondered about deep sleep plus his regular blood pressure medicines, given how good he looks and no real reason for hypotension that also resolved, I am more suspicious about an erroneous reading. Continue to follow. Otherwise as above. Subjective 3/5: No meaningful HPI. Patient resting comfortably in bed. Review of Systems Review of Systems: As per HPI Physical Exam Physical Exam: Gen: NAD Resp:Non-labored, no wheezing/rhonchi/rales, CTAB CV:RRR, normal S1/S2, no M/R/G Abd: Soft, non-distended, no TTP, normoactive bowels, no masses Extr: 2+ dp bilaterally, no edema Results & Data Results & Data ([facility]) Vital Signs (Past 12 Hours) Vital Signs Temp Pulse Pulse Resp BP BP Pulse Ox 11/02/22 21:48 82 165/95 H 11/02/22 21:45 36.5 C 81 18 170/99 H 96 O2 Del Method 11/02/22 21:48 11/02/22 21:45 Room Air Resident Activity Tracking Resident Involvement: Resident Care Provided Care Provided: Adult Hospital Medicine
[2022-11-03 07:10] LABS: Anion Gap 4 (3-11); BUN Creatinine Ratio 10.6 (10-20); Blood Urea Nitrogen 13 mg/dl (6-23); Carbon Dioxide 29 mmol/L (21-32); Chloride 108 mmol/L (98-107); Est GFR (African American) 62.1 ml/min; Est GFR (Non-African American) 53.6 ml/min; Glucose 106 mg/dl (70-99(Fasting)); Sodium 141 mmol/L (136-145)
[2022-11-03] MEDS: METOPROLOL TARTRATE 25 MG TAB PO SCH ×2 (10:31→20:22)
[2022-11-03] MEDS: ASPIRIN 81 MG ECTAB PO SCH (10:31)
[2022-11-03] MEDS: HEPARIN SOD 5,000 UNIT/0.5 ML VIAL SQ SCH ×2 (10:31→20:21)
[2022-11-03] MEDS: TAMSULOSIN HCL 0.4 MG CAP PO SCH (10:32)
[2022-11-03] MEDS: ISOSORBIDE MONO EXTENDED REL 30 MG TABCR PO SCH (10:32)
[2022-11-03] MEDS: QUEtiapine FUMARATE 25 MG TABLET PO SCH ×2 (10:32→20:22)
[2022-11-03] MEDS: ATORVASTATIN 10 MG TAB PO SCH (20:21)
[2022-11-03] MEDS: FINASTERIDE 5 MG TAB PO SCH (20:21)
--- NOTE | 2022-11-03 21:03 | Billing Data ---
Date of Service November 03, 2022 Coding Level of Care Code 85664 SUB INP/OBS CARE MIN
--- NOTE | 2022-11-04 07:16 | Hospitalist Progress Note ---
Date of Service November 04, 2022 Assessment & Plan (1) Altered behavior: (2) DVT prophylaxis: (3) Discharge planning issues: Jacki Aragon is a 82M with CAD and BPH who presented for evaluation of altered mental status and behavioral changes. Acute Delirium on Chronic Dementia (Altered Behavior) - Acute change in mental status superimposed on baseline of what sounds to be severe dementia with some behavioral disturbance - Infectious and neurologic workup unremarkable, most likely 2/2 dehydration - Consideration given to effects of home Quetiapine/Olanzapine - Consideration given to patient's recent environmental changes - Cr 1.7 on admission, decreasing w/ IV hydration, d/c fluids 3/4 as patient appears euvolemic - IVF discontinued --- Continue to follow fluid status, encourage PO fluid intake --- CM following for disposition planning (personal care vs skilled) Continue Home Aspirin, Lipitor, Finasteride, Imdur, Metoprolol, and Flomax FEN: d/c IVF, Regular (minced/moist) Code status: DNR/DNI DVT ppx: Heparin SQ Isolation: None Dispo:Med, PT/OT eval, CM working with PC to return vs transition to higher level care Admission and Anticipated Discharge Date Admission Date: November 01, 2022 Santo Aragon is a 82 year-old male with CAD and BPH who presented for evaluation of altered mental status and behavioral changes. 11/04: Review of Systems Review of Systems: As per HPI Results & Data Results & Data ([facility]) Vital Signs (Past 12 Hours) Vital Signs Temp Pulse Resp BP Pulse Ox O2 Del Method 11/03/22 20:18 36.6 C 86 18 119/65 96 Room Air Resident Activity Tracking Resident Involvement: Resident Care Provided Care Provided: Adult Hospital Medicine
[2022-11-04] MEDS: METOPROLOL TARTRATE 25 MG TAB PO SCH (08:40)
[2022-11-04] MEDS: TAMSULOSIN HCL 0.4 MG CAP PO SCH (08:40)
[2022-11-04] MEDS: ISOSORBIDE MONO EXTENDED REL 30 MG TABCR PO SCH (08:40)
[2022-11-04] MEDS: ASPIRIN 81 MG ECTAB PO SCH (08:41)
[2022-11-04] MEDS: QUEtiapine FUMARATE 25 MG TABLET PO SCH (08:41)
[2022-11-04] MEDS: HEPARIN SOD 5,000 UNIT/0.5 ML VIAL SQ SCH (08:42)
--- NOTE | 2022-11-04 16:05 | Discharge Summary ---
Date of Service November 04, 2022 Admission HPI Per Admitting Provider No meaningful HPI review of systems obtainable from patient. He opens eyes occasionally, but not to command. In discussion with ER physician, he was difficult to arouse at his care facility earlier today, so they brought him to the ER. In discussion with his , she does not really give any acuteness to his HPI, noting however, that he was at [facility] for a little while, but she did not like the care he was receiving, so she moved him to [facility]. This was about 2 weeks or so ago, since that time he has adjusted reasonably well to his new environment, and she did not necessarily notice anything new/different about him recently. As far as his baseline, it sounds like he is somewhat verbal and a little bit situationally aware, but does not really able to have any depth of awareness anymore. She is uncertain the type of his dementia, but notes that it progressed slowly over years to where he would get too agitated and to unruly for her to be able to take care of him anymore. Admission Exam Per Admitting Provider Sleeping in bed, occasionally opens eyes, but somewhat irregularly so. Does not appear to be in any distress. HEENT normocephalic atraumatic hard to gauge mucous membranes because he has his mouth closed fairly tightly, his skin does appear dry. Cardio is regular without rubs murmurs or gallops. Lungs clear to auscultation bilaterally no rales rhonchi or wheezes with moderate spontaneous effort no accessory muscle use. Abdomen is soft nondistended appears to be nontenderthere is no area that seems to cause him to grimace or wince, there is no guarding or rigidity. Extremities show no cyanosis clubbing or edema, he shows no tenderness anywhere. He has a fairly rigid resting muscle tonebut equal upper and lower extremities bilaterally, and a question a bit of cogwheeling. He shows no asymmetric/focal weakness or droopiness or asymmetric muscle tone. Unable to fully assess sensation. Musculoskeletal exam shows no gross lesions. Skin is dry, no pallor or icterus. Mental status is as abovewhere he is nonverbal and opens his eyes somewhat irregularly. CBC, CMP, lactate, ammonia, troponin, urinalysis, TSH/free T4, flu swab, COVID/RSV swabs, chest x-ray, EKG, head CT all reviewed. Principal Diagnosis Delirium, Dehydration Discharge Exam Constitutional WD/WN, vitals as above ENMT Anicteric sclera, moist mucous membranes Respiratory normal respiratory effort, lungs clear to auscultation Cardiovascular RRR, no murmur, no edema Gastrointestinal (Abdomen) normal bowel sounds, soft, nontender, no hepatosplenomegaly Skin no rashes, warm and dry Psychiatric Sleeping, not oriented or alert. Discharge Data Allergies Allergy/AdvReac Type Severity Reaction Status Date / Time No Known Allergies Allergy Mild Verified 10/30/22 16:25 Consultations 10/30/22 15:49 ED Decision to Admit Stat Ordered Studies 10/30/22 12:45 CT head/brain wo con Stat Hospital Course (1) Altered mental status: (2) Acute dehydration: Jacki Aragon is a 82M with CAD and BPH who presented for evaluation of altered mental status and behavioral changes. Acute Delirium on Chronic Dementia (Altered Behavior) Acute change in mental status superimposed on baseline of what sounds to be severe dementia with some behavioral disturbance. Infectious and neurologic workup was largely unremarkable, it is suspected that his symptoms were secondary to dehydration which possibly from oversedation due to medication and parkinsonism due to medication. It was considered that this presentation could be related to recent environmental changes as well as his home medications of Quetiapine/Olanzapine. He had an elevated creatinine of 1.7 on admission but this responded well to IV hydration. Patient was eventually moved to PO fluids and IVF was discontinued. Case management assisted with disposition planning and he was accepted to [facility]. No changes were made to his home medications during this stay. Note: a CT head was completed on 10/30 which showed no acute findings but did demonstrate, "Involutional changes with ventriculomegaly which may be on an ex vacuo basis. Normal pressure hydrocephalus could appear similarly." It is recommended that this is followed up as an outpatient for further investigation, including review with Mr. Rodriguez's neurology office. It is also strongly recommended that there is further discussion with Mr. Rodriguez's family regarding goals of his care for the future. Total Time Total Time Spent Total Time Spent (In Minutes): . Discharge Plan Discharge Items Patient Disposition: Personal Half-Way Reason For Visit: DELIRIUM Discharge Diagnosis: Delirium, Secondary to Dehydration Condition on Discharge: Fair Activity: Per Instructions section Non-emergency contact: Primary Care Provider Call non-emergency contact if: you have any medication questions, your symptoms worsen and you have a fever Follow-up/Referrals: Tanya Dunlap [Primary Care Provider] - Diet: Other - See Diet Comment Diet Texture: Mechanical soft (ground) Addtl Attending Provider Instructions: Mr. Rodriguez, you were admitted to the hospital due to altered mental status and changes in behavior. After admission, a workup of infectious and neurologic was unremarkable and it was suspected that your symptoms were due to dehydration. You initially also had an elevated CR (1.7) which improved over your stay as you were hydrated with IV fluids. We were able to discontinue your IV fluids and returned to your normal PO fluids and diet (minced/moist). It will be important that you continue to drink adequate fluid daily. Medication Changes: - NO changes to your medications were made during the hospitalization - Continue your home Aspirin, Lipitor, Finasteride, Imdur, Metoprolol, Flomax, Quetiapine, Olanzapine. Follow-Up: - Please contact your PCP for a hospital discharge follow up appointment within 1 week of your date of discharge. -Note: on your head CT there was an undetermined finding that could represent normal pressure hydrocephalus among other etiologies, we recommend that you discuss this with your primary care doctor and follow up outpatient with your neurologist. Pending Studies at Discharge: No Stand-Alone Forms: My [employer], Smoking Cessation Skilled Items Patient informed of condition?: Yes DNR: Yes Discharge Level of Care: Other Communicable Disease: No Discharge Prognosis: Stable Lines: None Urinary Catheter: No Medications and DC Order Prescriptions: Continued quetiapine [Seroquel] 25 mg Tablet See Rx Instructions .ROUTE .COMPLEX Rx Instructions: 25 mg orally; TAKES 25 MG QAM, THEN 50 MG HS. sennosides [senna] 8.6 mg Tablet 17.2 mg PO HS PRN (Reason: Constipation) acetaminophen [Tylenol] 325 mg Tablet 650 mg PO Q6H PRN (Reason: PAIN/FEVER > 101F) atorvastatin 10 mg Tablet 10 mg PO HS isosorbide mononitrate 30 mg Tablet Extended Release 24 Hr 30 mg PO QAM olanzapine 2.5 mg Tablet 2.5 mg PO Q6H PRN (Reason: AGITATION/AGGRESSION) aspirin 81 mg Tablet,Delayed Release (Dr/Ec) 81 mg PO QAM tamsulosin [Flomax] 0.4 mg Capsule 0.4 mg PO QAM finasteride 5 mg Tablet 5 mg PO HS metoprolol tartrate 25 mg Tablet 12.5 mg PO BID Discharge Orders: Discharge Order (Routine); Ordered 11/04/22 Ordered By: Charo Resendez Admission Data Admit Date/Time: 11/01/22 18:42 Attending Provider: Esme Smith Admit Provider: Lance Sierra Primary Care Provider: Tanya Dunlap Other Providers: Channing Whaley ; Lance Sierra Other Interventions: Discharge Summary Assessment (RN) Last Done: 11/04/22 15:51 Supervising Physician Co-Signing Physician Notes Resident Physician Supervision Note: I independently interviewed and examined the patient and verified the welsh history and physical, reviewed labs and image studies and agree with resident findings and care plan. Resident Activity Tracking Resident Involvement: Resident Care Provided Care Provided: Adult Hospital Medicine
== END 2022-11-04 16:44 | disposition home or self-care (01) | DRG 880 ==
LOC: ED 12:24 → 3N 12:24 → SUATTDRO 11-01 18:42

== ENCOUNTER 2022-11-10 12:32 | Observation (INO) ==
[2022-11-10] MEDS ORDERED: SODIUM CHLORIDE 0.9% 1000ML 1,000 ML IV SCH (12:45)
[2022-11-10 13:05] LABS: Basophils # (auto) 0.04 K/uL (0-0.2); Basophils % (auto) 0.7 %; Eosinophils # (auto) 0.13 K/uL (0-0.50); Eosinophils % (auto) 2.4 %; Hematocrit (blood only) 44.5 % (42.0-52.0); Hemoglobin 15.1 g/dl (14.0-18.0); Immature Granulocytes # (auto) 0.02 K/uL (0.01-0.20); Immature Granulocytes % (auto) 0.4 %; Lymphocytes # (auto) 1.86 K/uL (1.2-3.4); Lymphocytes % (auto) 34.7 %; Mean Corpuscular Hemoglobin 30.6 pg (25.0-34.0); Mean Corpuscular Hgb Conc 33.9 g/dL (32.0-36.0); Mean Corpuscular Volume 90.3 fL (80.0-100.0); Mean Platelet Volume 11.2 fL (9.4-12.4); Monocytes # (auto) 0.47 K/uL (0.11-0.59); Monocytes % (auto) 8.8 %; Neutrophils # (auto) 2.84 K/uL (1.40-6.50); Platelet Count 166 K/uL (130-400); RDW Coefficient of Variation 13.7 % (11.5-14.5); RDW Standard Deviation 45.3 fL (36.4-46.3); Red Blood Count 4.93 M/uL (4.70-6.10); White Blood Count 5.36 K/ul (4.8-10.8)
[2022-11-10 13:23] LABS: Alanine Aminotransferase 12 U/L (7-52); Albumin Globulin Ratio 1.4 (0.9-2); Albumin Level 3.8 gm/dl (3.4-5.0); Alkaline Phosphatase 68 U/L (34-104); Anion Gap 5 (3-11); Aspartate Aminotransferase 15 U/L (13-39); BUN Creatinine Ratio 16.8 (10-20); Bilirubin,Total 1.4 mg/dl (0.2-1.0); Blood Urea Nitrogen 25 mg/dl (6-23); Carbon Dioxide 29 mmol/L (21-32); Chloride 107 mmol/L (98-107); Est GFR (African American) 49.2 ml/min; Est GFR (Non-African American) 42.5 ml/min; Globulin 2.7 gm/dl (2.5-4.0); Glucose 172 mg/dl (70-99(Fasting)); Lipase 20 U/L (11-82); Magnesium 2.2 mg/dl (1.7-2.4); Potassium 4.1 mmol/L (3.5-5.1); Sodium 141 mmol/L (136-145); Total Protein 6.5 gm/dl (6.0-8.3)
[2022-11-10 13:30] LABS: Troponin I High Sensitivity 16.4 pg/ml (0-20)
[2022-11-10 13:33] LABS: INR 1.1 (0.9-1.1); Prothrombin Time 11.6 Seconds (9.0-12.0)
[2022-11-10 13:38] LABS: Thyroid Stimulating Hormone 6.238 uIu/ml (0.300-4.500)
--- NOTE | 2022-11-10 13:39 | Emergency Department Note ---
Impression & Plan Unresponsive episode, Hypotension, Dehydration ED Provider Note ED Provider Note NAME: RAIN BRAY AGE:82 SEX: Male : 1940 ARRIVES VIA: EMS INFORMANT: EMS ED PROVIDER(s): Fariha Rose DO CHIEF COMPLAINT: Unresponsive HPI: This is an 82-year-old male presents emergency department via EMS after having an unresponsive episode while at the facility he currently resides. Patient has been at the [facility] for 3 weeks, this is a second similar episode within the last 2 weeks. Patient previously seen and admitted after similar episode, no obvious etiology found and he was ultimately discharged back to [place] in stable condition. EMS reports when they were first contacted staff they reported he was hypotensive and hypoxic. Upon their arrival patient normotensive with no hypoxia or respiratory distress. A check of his glucose prehospital was reassuring. Patient would respond to painful stimuli and was otherwise stable during transport. IV established by EMS. PAST MEDICAL HISTORY:See Below PAST SURGICAL HISTORY:See Below FAMILY HISTORY:See Below SOCIAL HISTORY:See Below HOME MEDICATIONS:See Below ALLERGIES:See Below VITALS:See Below PHYSICAL EXAMINATION: GENERAL: Somnolent, well appearing, well nourished, no distress, non-toxic EYE EXAM: normal conjunctiva, PERRL and EOM's grossly intact OROPHARYNX: no exudate, no erythema, lips, buccal mucosa, and tongue normal and mucous membranes are moist NECK: supple, no nuchal rigidity, no adenopathy, non-tender LUNGS: Clear to auscultation. Normal chest wall mechanics, no w/r/r HEART: no murmurs, S1 normal and S2 normal ABDOMEN: abdomen soft, non-tender, normo-active bowel sounds, no masses, no rebound or guarding. BACK: Back is symmetrical on inspection and there is no deformity, no midline tenderness, no CVA tenderness. SKIN: no rashes, petechiae, orbruising UPPER EXTREMITIES: upper extremities are grossly normal. FROM, nml pulses b/l. LOWER EXTREMITIES: No pitting edema. FROM, nml pulses b/l. NEURO EXAM: Somnolent but responds to painful stimuli, unable to perform any additional neuro testing Vital Signs: reviewed and remarkable Differential Diagnosis: Differential diagnoses includes but is not limited to toxic, metabolic, infectious, traumatic, cardiac, neurologic, hematologic, psychiatric and inflammatory etiologies. MEDICAL DECISION MAKING: This is an 82-year-old male brought in by EMS due to concern for unresponsive episode. Patient with a history of dementia. Patient minimally responsive initially. Labs drawn and sent, IV established, EKG performed and interpreted by me, chest x-ray performed and interpreted by me and patient placed on telemetry. Patient's labs and imaging reassuring, he did show some improvement upon arrival of additional family members. No evidence of acute evolving infection. Radiology felt chest x-ray perhaps showed evolving infection, and given initial report of accompanying hypoxia, IV antibiotics were started. Case discussed with hospitalist for additional evaluation and management. They felt pneumonia less likely and wanted to wait for additional evaluation. Nasal swab also sent. Patient was given gentle IV fluid rehydration and maintained his blood pressure while present in the emergency room. Family bedside was updated several times on results and plan for care. Consultation(s): [] ER Treatment Provided: See below 1335: Discussed with and son at bedside. Diagnostics Interpreted By Me: -ECG: Normal sinus at 64, first-degree AV block, normal QRS and QTc, normal axis, nonspecific ST/T wave changes, low voltage noted -Cardiac Monitoring: An order was placed for continuous cardiac monitoring. The monitor shows a rate of 66 with normal sinus rhythm. -Laboratory studies: As stated above and show below. -Imaging studies: X-ray: Chest: A single view study of the chest was reviewed and was negative for cardiomegaly, focal infiltrate, effusion, pulmonary edema, or wide mediastinum. Increased markings noted at the left base compared to prior although diaphragmatic border still seen. 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 Beliefs That Will Affect Care: None Current Living Situation: Personal Care Facility Current Living Situation Comment: Lives in [facility] [facility] Assistive Devices: Walker and Wheelchair Allergies Allergies Allergy/AdvReac Type Severity Reaction Status Date / Time No Known Allergies Allergy Mild Verified 11/10/22 15:03 Home Meds Home Medications Medication Instructions Recorded Confirmed acetaminophen 325 mg tablet 650 mg PO Q6H PRN PAIN/FEVER > 101F 10/30/22 11/10/22 (Tylenol) aspirin 81 mg tablet,delayed 81 mg PO QAM 10/30/22 11/10/22 release atorvastatin 10 mg tablet 10 mg PO HS 10/30/22 11/10/22 finasteride 5 mg tablet 5 mg PO HS 10/30/22 11/10/22 isosorbide mononitrate 30 mg 30 mg PO QAM 10/30/22 11/10/22 tablet,extended release 24 hr metoprolol tartrate 25 mg tablet 12.5 mg PO BID 10/30/22 11/10/22 olanzapine 2.5 mg tablet 2.5 mg PO Q6H PRN 10/30/22 11/10/22 AGITATION/AGGRESSION quetiapine 25 mg tablet (Seroquel) See Rx Instructions .Route .COMPLEX 10/30/22 11/10/22 sennosides 8.6 mg tablet (senna) 17.2 mg PO HS PRN Constipation 10/30/22 11/10/22 tamsulosin 0.4 mg capsule (Flomax) 0.4 mg PO QAM 10/30/22 11/10/22 Results & Data (ED) Vital Signs Vital Signs - 24 hr 11/10/22 12:42 11/10/22 12:42 11/10/22 13:15 Temperature 35.6 C L 35.6 C L Temperature Source Temporal Artery Scan Temporal Artery Scan Pulse Rate 64 66 Pulse Rate [Apical] 64 Pulse Rate from SpO2 Sensor Pulse Rhythm [Apical] Regular Respiratory Rate 20 20 Respiratory Depth Normal Normal Blood Pressure 108/65 Blood Pressure [Right Arm] 108/65 Blood Pressure Mean 79 Blood Pressure Mean [Right Arm] 79 Pulse Oximetry 95 95 Oxygen Delivery Method Room Air Room Air Sepsis Recent Fever Within 48 Hours No Sepsis New/Unexplained Change in Mental Status Yes Sepsis Action Taken by Nursing Physician Notified 11/10/22 13:11 11/10/22 13:35 Temperature Temperature Source Pulse Rate 65 63 Pulse Rate [Apical] Pulse Rate from SpO2 Sensor 65 64 Pulse Rhythm [Apical] Respiratory Rate 18 15 Respiratory Depth Blood Pressure 110/62 99/56 L Blood Pressure [Right Arm] Blood Pressure Mean 78 70 Blood Pressure Mean [Right Arm] Pulse Oximetry 93 94 Oxygen Delivery Method Sepsis Recent Fever Within 48 Hours Sepsis New/Unexplained Change in Mental Status Sepsis Action Taken by Nursing Laboratory Data 11/10/22 12:45 11/10/22 12:45 Lab Results 11/10/22 11/10/22 11/10/22 Range/Units 12:45 12:45 12:45 WBC 5.36 (4.8-10.8) K/ul RBC 4.93 (4.70-6.10) M/uL Hgb 15.1 (14.0-18.0) g/dl Hct 44.5 (42.0-52.0) % MCV 90.3 (80.0-100.0) fL MCH 30.6 (25.0-34.0) pg MCHC 33.9 (32.0-36.0) g/dL RDW Std Deviation 45.3 (36.4-46.3) fL RDW Coeff of Tang 13.7 (11.5-14.5) % Plt Count 166 (130-400) K/uL MPV 11.2 (9.4-12.4) fL Immature Gran % (Auto) 0.4 % Neut % (Auto) 53.0 % Lymph % (Auto) 34.7 % [place] % (Auto) 8.8 % Eos % (Auto) 2.4 % Baso % (Auto) 0.7 % Neut # (Auto) 2.84 (1.40-6.50) K/uL Lymph # (Auto) 1.86 (1.2-3.4) K/uL [place] # (Auto) 0.47 (0.11-0.59) K/uL Eos # (Auto) 0.13 (0-0.50) K/uL Baso # (Auto) 0.04 (0-0.2) K/uL Immature Gran # (Auto) 0.02 (0.01-0.20) K/uL PT 11.6 (9.0-12.0) Seconds INR 1.1 (0.9-1.1) Sodium 141 (136-145) mmol/L Potassium 4.1 (3.5-5.1) mmol/L Chloride 107 (98-107) mmol/L Carbon Dioxide 29 (21-32) mmol/L Anion Gap 5 (3-11) BUN 25 H (6-23) mg/dl Creatinine 1.49 H (0.6-1.4) mg/dl Est Cr Clr Drug Dosing Not Reportable Est GFR ( Amer) 49.2 ml/min Est GFR (Non-Af Amer) 42.5 ml/min BUN/Creatinine Ratio 16.8 (10-20) Glucose 172 H (70-99(Fasting)) mg/dl Lactate (0.4-2.0) mmol/L Calcium 9.0 (8.5-10.1) mg/dl Magnesium 2.2 (1.7-2.4) mg/dl Total Bilirubin 1.4 H (0.2-1.0) mg/dl AST 15 (13-39) U/L ALT 12 (7-52) U/L Alkaline Phosphatase 68 (34-104) U/L Troponin I High Sens 16.4 (0-20) pg/ml Total Protein 6.5 (6.0-8.3) gm/dl Albumin 3.8 (3.4-5.0) gm/dl Globulin 2.7 (2.5-4.0) gm/dl Albumin/Globulin Ratio 1.4 (0.9-2) Lipase 20 (11-82) U/L Procalcitonin (0-0.5) ng/ml TSH (0.300-4.500) uIu/ml Free T4 (0.61-1.60) ng/dl 11/10/22 11/10/22 11/10/22 Range/Units 12:45 14:19 14:19 WBC (4.8-10.8) K/ul RBC (4.70-6.10) M/uL Hgb (14.0-18.0) g/dl Hct (42.0-52.0) % MCV (80.0-100.0) fL MCH (25.0-34.0) pg MCHC (32.0-36.0) g/dL RDW Std Deviation (36.4-46.3) fL RDW Coeff of Tang (11.5-14.5) % Plt Count (130-400) K/uL MPV (9.4-12.4) fL Immature Gran % (Auto) % Neut % (Auto) % Lymph % (Auto) % [place] % (Auto) % Eos % (Auto) % Baso % (Auto) % Neut # (Auto) (1.40-6.50) K/uL Lymph # (Auto) (1.2-3.4) K/uL [place] # (Auto) (0.11-0.59) K/uL Eos # (Auto) (0-0.50) K/uL Baso # (Auto) (0-0.2) K/uL Immature Gran # (Auto) (0.01-0.20) K/uL PT (9.0-12.0) Seconds INR (0.9-1.1) Sodium (136-145) mmol/L Potassium (3.5-5.1) mmol/L Chloride (98-107) mmol/L Carbon Dioxide (21-32) mmol/L Anion Gap (3-11) BUN (6-23) mg/dl Creatinine (0.6-1.4) mg/dl Est Cr Clr Drug Dosing Est GFR ( Amer) ml/min Est GFR (Non-Af Amer) ml/min BUN/Creatinine Ratio (10-20) Glucose (70-99(Fasting)) mg/dl Lactate 1.3 (0.4-2.0) mmol/L Calcium (8.5-10.1) mg/dl Magnesium (1.7-2.4) mg/dl Total Bilirubin (0.2-1.0) mg/dl AST (13-39) U/L ALT (7-52) U/L Alkaline Phosphatase (34-104) U/L Troponin I High Sens (0-20) pg/ml Total Protein (6.0-8.3) gm/dl Albumin (3.4-5.0) gm/dl Globulin (2.5-4.0) gm/dl Albumin/Globulin Ratio (0.9-2) Lipase (11-82) U/L Procalcitonin < 0.05 (0-0.5) ng/ml TSH 6.238 H (0.300-4.500) uIu/ml Free T4 0.90 (0.61-1.60) ng/dl Administered Medications Acetaminophen (Acetaminophen 325 Mg Tab) 650 mg PO Q4H PRN PRN Reason: Pain or Fever Stop: 12/10/22 17:53 Last Admin: 11/11/22 12:19 Dose: 650 mg Documented By: RRR Aspirin (Aspirin 81 Mg Ectab) 81 mg PO [facility] Stop: 12/11/22 08:59 Last Admin: 11/11/22 08:21 Dose: 81 mg Documented By: RRR Atorvastatin Calcium (Atorvastatin 10 Mg Tab) 10 mg PO [facility] Stop: 12/10/22 20:59 Last Admin: 11/11/22 20:18 Dose: 10 mg Documented By: Admin: 11/10/22 21:21 Dose: Not Given Documented By: DM Finasteride (Finasteride 5 Mg Tab) 5 mg PO [facility] Stop: 12/10/22 20:59 Last Admin: 11/11/22 20:19 Dose: 5 mg Documented By: Admin: 11/10/22 21:21 Dose: Not Given Documented By: DM Isosorbide Mononitrate (Isosorbide [place] Extended Rel 30 Mg Tabcr) 30 mg PO [facility] Stop: 12/11/22 08:59 Last Admin: 11/11/22 08:21 Dose: 30 mg Documented By: RRR Metoprolol Tartrate (Metoprolol Tartrate 25 Mg Tab) 12.5 mg PO BID [facility] Stop: 12/10/22 20:59 Last Admin: 11/11/22 20:20 Dose: 12.5 mg Documented By: Admin: 11/11/22 08:21 Dose: 12.5 mg Documented By: Admin: 11/10/22 21:20 Dose: Not Given Documented By: DM Olanzapine (Olanzapine 10 Mg/2.1 Ml Sdv) 2.5 mg IM Q4H PRN PRN Reason: Agitation (at risk to self or others) Stop: 12/10/22 20:14 Last Admin: 11/11/22 04:44 Dose: 2.5 mg Documented By: Admin: 11/10/22 21:15 Dose: 2.5 mg Documented By: RAFFI Quetiapine Fumarate (Quetiapine Fumarate 25 Mg Tablet) 25 mg PO [facility] Stop: 12/10/22 20:59 Last Admin: 11/11/22 20:20 Dose: 25 mg Documented By: Admin: 11/10/22 21:22 Dose: Not Given Documented By: DM Tamsulosin HCl (Tamsulosin Hcl 0.4 Mg Cap) 0.4 mg PO QAM ALEXIS Stop: 12/11/22 08:59 Last Admin: 11/11/22 08:22 Dose: 0.4 mg Documented By: RRR Discontinued Medications Gadobutrol (Gadobutrol 30ml Vial) 9.5 ml IV ONCE ONE Stop: 11/10/22 16:29 Last Admin: 11/10/22 16:28 Dose: 9.5 ml Documented By: NADER Sodium Chloride (Nss 1000ml) 1,000 mls @ 125 mls/hr IV .Q8H ALEXIS Stop: 12/10/22 12:44 Last Infusion: 11/10/22 18:37 Dose: 0 mls/hr Documented By: Infusion: 11/10/22 16:55 Dose: 125 mls/hr Documented By: Admin: 11/10/22 13:08 Dose: 125 mls/hr Documented By: RAHEL Ceftriaxone Sodium (Rocephin) 2,000 mg in 70 mls @ 140 mls/hr IV NOW STA Stop: 11/10/22 14:38 Last Admin: 11/10/22 15:02 Dose: Not Given Documented By: NRB Azithromycin 500 mg/ Dextrose 255 mls @ 125 mls/hr IV ONE ONE Stop: 11/10/22 16:11 Last Admin: 11/10/22 15:02 Dose: Not Given Documented By: NRB Lactated Ringer's (Lr) 1,000 mls @ 100 mls/hr IV .Q10H ALEXIS Stop: 11/11/22 13:53 Last Infusion: 11/11/22 14:19 Dose: 0 mls/hr Documented By: Admin: 11/11/22 04:00 Dose: 100 mls/hr Documented By: Infusion: 11/11/22 04:00 Dose: 100 mls/hr Documented By: Admin: 11/10/22 18:10 Dose: 100 mls/hr Documented By: RRR Metoprolol Tartrate (Metoprolol Tartrate 1 Mg/Ml Vial) 5 mg IV NOW ONE Stop: 11/10/22 21:48 Last Admin: 11/10/22 22:09 Dose: Not Given Documented By: RAFFI Imaging Data Radiologist's Impression: Chest X-Ray 11/10/22 12:41 SINGLE VIEW CHEST CLINICAL HISTORY: Change in mental status. FINDINGS: An AP, portable, upright chest radiograph is compared to study dated 10/30/2022. The patient is status post midline sternotomy. The heart is enlarged noting atherosclerotic calcification of the thoracic aorta. The pulmonary vasculature is noncongested. Chronic interstitial thickening similar to previous. Airspace opacities are seen at the left lung base. Right lung is clear noting basilar atelectasis. No large pleural effusion or pneumothorax is identified. The skeletal structures are osteopenic. The bony thorax is grossly intact. Arthritic change is noted in the shoulders and spine. IMPRESSION: 1. Cardiomegaly without radiographic evidence of congestive failure. 2. There are airspace opacities at the left lung base. This could represent scarring/atelectasis versus an infectious/inflammatory pneumonitis. Clinical correlation will be required. ACT 112: Negative or not required by law. Electronically signed by: Von Burris M.D. 11/10/2022 1:[address] 11/10/22 12:41 CT SCAN OF THE BRAIN WITHOUT IV CONTRAST CLINICAL HISTORY: Change in mental status. COMPARISON STUDY: CT of the brain dated 10/30/2022. TECHNIQUE: Unenhanced axial CT scan of the brain is performed from the vertex to the skull base. A dose lowering technique was utilized adhering to the principles of ALARA. CT DOSE: 537.48 mGy.cm FINDINGS: Brain parenchyma: There is age-related involutional change noting moderate subcortical and periventricular microangiopathic disease. There is no hemorrhage, mass effect, or evidence of acute territorial ischemia by CT criteria. 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 Doss-white matter differentiation is preserved. No extra-axial fluid collection is seen. Ventricles, sulci, cisterns: Prominent secondary to involutional change. Intracranial vasculature: There is atherosclerotic calcification of the cavernous carotid and vertebral arteries. Calvarium: Unremarkable. Sinuses and mastoids: The visualized paranasal sinuses are clear. The mastoid air cells are well pneumatized. Orbits: The bony orbits are grossly intact. IMPRESSION: There is no hemorrhage, mass effect, or evidence of acute territorial ischemia by CT criteria. ACT 112: Negative or not required by law. Electronically signed by: Von Burris M.D. 11/10/2022 1:42 PM Discharge Plan Visit Data Chief Complaint: Unresponsive ED Provider: Fariha Rose Discharge Problem: Unresponsive episode, Hypotension, Dehydration Patient Disposition: Admitted As Inpatient Discharge Instructions Interventions: ED Discharge Assessment Last Done: 11/10/22 16:52
--- NOTE | 2022-11-10 13:45 | CT Scan Report ---
CT SCAN OF THE BRAIN WITHOUT IV CONTRAST CLINICAL HISTORY: Change in mental status. COMPARISON STUDY: CT of the brain dated 10/30/2022. TECHNIQUE: Unenhanced axial CT scan of the brain is performed from the vertex to the skull base. A do se lowering technique was utilized adhering to the principles of ALARA. CT DOSE: 537.48 mGy.cm FINDINGS: Brain parenchyma: There is age-related involutional change noting moderate subcortical and periventri cular microangiopathic disease. There is no hemorrhage, mass effect, or evidence of acute territorial ischemia by CT criteria. 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 Doss-whi te matter differentiation is preserved. No extra-axial fluid collection is seen. Ventricles, sulci, cisterns: Prominent secondary to involutional change. Intracranial vasculature: There is atherosclerotic calcification of the cavernous carotid and vertebr al arteries. Calvarium: Unremarkable. Sinuses and mastoids: The visualized paranasal sinuses are clear. The mastoid air cells are well pneu matized. Orbits: The bony orbits are grossly intact. IMPRESSION: There is no hemorrhage, mass effect, or evidence of acute territorial ischemia by CT juliet menodza. ACT 112: Negative or not required by law. Electronically signed by: Von Burris M.D. 11/10/2022 1:42 PM
--- NOTE | 2022-11-10 13:49 | XRay Report ---
SINGLE VIEW CHEST CLINICAL HISTORY: Change in mental status. FINDINGS: An AP, portable, upright chest radiograph is compared to study dated 10/30/2022. The patient is status post midline sternotomy. The heart is enlarged noting atherosclerotic calcification of the thoracic aorta. The pulmonary vasculature is noncongested. Chronic interstitial thickening similar to previous. Airspace opacities are seen at the left lung base. Right lung is clear noting basilar atel ectasis. No large pleural effusion or pneumothorax is identified. The skeletal structures are osteope evan. The bony thorax is grossly intact. Arthritic change is noted in the shoulders and spine. IMPRESSION: 1. Cardiomegaly without radiographic evidence of congestive failure. 2. There are airspace opacities at the left lung base. This could represent scarring/atelectasis vers us an infectious/inflammatory pneumonitis. Clinical correlation will be required. ACT 112: Negative or not required by law. Electronically signed by: Von Burris M.D. 11/10/2022 1:48 PM
[2022-11-10] MEDS ORDERED: AZITHROMYCIN 500 MG in DEXTROSE 5% 250 ML IV ONE (14:09)
[2022-11-10] MEDS ORDERED: cefTRIAXone SODIUM 2,000 MG/70 ML BAG IV STA (14:09)
[2022-11-10 14:14] LABS: T4 Free Thyroxine 0.9 ng/dl (0.61-1.60)
--- NOTE | 2022-11-10 14:49 | History & Physical Report ---
Date of Service November 10, 2022 Assessment & Plan (1) Unresponsive episode: Plan: Suspect his increased sleepiness due to Seroquel use although no clear reason this would be worsening. Does not correlate with poor sleep at night. ?Lewy body dementia (see below) would explain progression of hypersomnia and transient episodes of unresponsiveness. Antipsychotics may be making mobility worse. Staring episodes prior to Seroquel at home slightly concerning for seizure-like activity. Will get prolactin, Brain MRI seizure protocol, EEG and consult neurology. However would consider this less likely than alternative etiologies Previously resolved last admission without adjusting this medication however clear correlation with starting Seroquel increasing tiredness - will have to weigh risk of this vs. benefit with prior aggressive behaviours. Reduce Seroquel to 25mg PO HS and will use olanzapine as needed for agitation the rest of the time. (2) Cogwheel rigidity: Plan: Concerning symptoms with shuffling gait for Parkinson's although this may be secondary to his antipsychotics. His dementia appears far more advanced than his physical symptoms however as family report he has good mobility at baseline. Will consult neurology for more formal evaluation (3) Discharge planning issues: Plan: Family wish to take the patient home after discharge rather than back to [place] as they are not happy with the care there. PT/OT to assess any mobility needs at home. In discussions with hospice - consult palliative care to assist with this and symptom management (4) Altered mental status: Plan: Mainly just sleepy - see unresponsive episode as above (5) Abnormal CXR: Plan: Low suspicion of pneumonia. WBC and procalcitonin negative. If not improving would consider repeating CXR and treating but given resolution of sleepiness on prior admission with similar presentation I am doubtful he will need antibiotics. (6) Dehydration: Plan: Cr 1.49 from baseline 1.23 LR 2L @ 125ml/hr. Repeat BMP in AM (7) Dementia: Plan: Never had neurological evaluation TSH mildly elevated - unlikely contributing B12 level with AM labs Given Parkinson's features would consider Lewy body dementia which would also fit with transient episodes of unresponsiveness (8) Slurred speech: Plan: Unclear what caused this as family were told TIA however clearly has been persistent. Can assess for prior stroke on brain MRI. Longstanding for > 1 year. Will have SLT assessment while here to make sure he is safe to swallow. Plan VTE Prophyalxis - avoid chemical/SCDs prophylaxis due to more symptomatic management requested by family and likely to cause agitation Diet - regular, soft bite sized Disposition - admit to med/tele Admission and Anticipated Discharge Date Admission Date: November 10, 2022 History of Present Illness Chief Complaint: Unresponsive episode Primary Care Provider: [facility] [place] Mahesh Rodriguez is an 82 year old male with dementia who presents to the ER from [facility] with an unresponsive episode. At baseline reportedly he is mobile and conversational however difficult to understand him due to his slurred speech. Violetta called his today as the were unable to wake him and felt he wasn't responsive. This is very similar to his previous admission here from November 01 - 2022 which resolved without significant intervention and he was kept on the same dose of Seroquel on discharge. History obtained from his and son at bedside but is somewhat missing details as he has been seen mostly by outside providers and outside notes are not available on admission. As a back ground he has had dementia for many years which has been progressing. 1-2 years ago he had a sudden episode of slurred speech and was seen at [facility]. He was diagnosed with a TIA per family members although they aren't sure as it may have been a stroke. He never followed up with neurology following this. He has never been evaluated by neurology for his dementia. Eventually behaviors became violent with his dementia and he was hospitalized in [facility] approximately 5-6 weeks ago. He was started on Seroquel during this admission and has these unresponsive and sleeping all though the daytime episodes since although they are becoming much more frequent. They appear to be independent of his sleeping the previous night and family do not think it is due to a rearranged sleep wake cycle. Family report his mobility is good but he shuffles. Tremor noticed just recently at rest left hand > right although no current tremor noticed. In the ER CXR was mildly concerning for pneumonia and initially ER provider ordered antibiotics however these were discontinued prior to being given. He has not had fever, chills, chest pain, shortness of breath or cough. His family report his symptoms are exactly the same as his last admission here. He was referred to medicine for admission and ongoing management of unresponsive episode and dehydration. Of note his family have not been happy with the care he has been receiving at [facility] and wish to take him home on discharge. Allergies Allergy/AdvReac Type Severity Reaction Status Date / Time No Known Allergies Allergy Mild Verified 11/10/22 15:03 Home Medications Medication Instructions Recorded Confirmed Type acetaminophen 325 mg tablet 650 mg PO Q6H PRN PAIN/FEVER > 101F 10/30/22 11/10/22 History (Tylenol) aspirin 81 mg tablet,delayed 81 mg PO QAM 10/30/22 11/10/22 History release atorvastatin 10 mg tablet 10 mg PO HS 10/30/22 11/10/22 History finasteride 5 mg tablet 5 mg PO HS 10/30/22 11/10/22 History isosorbide mononitrate 30 mg 30 mg PO QAM 10/30/22 11/10/22 History tablet,extended release 24 hr metoprolol tartrate 25 mg tablet 12.5 mg PO BID 10/30/22 11/10/22 History olanzapine 2.5 mg tablet 2.5 mg PO Q6H PRN 10/30/22 11/10/22 History AGITATION/AGGRESSION quetiapine 25 mg tablet (Seroquel) See Rx Instructions .Route .COMPLEX 10/30/22 11/10/22 History sennosides 8.6 mg tablet (senna) 17.2 mg PO HS PRN Constipation 10/30/22 11/10/22 History tamsulosin 0.4 mg capsule (Flomax) 0.4 mg PO QAM 10/30/22 11/10/22 History Past Med/Surg History Medical History (Updated 11/10/22 @ 20:28 by Willis Mauro MD) Dementia Social History Smoking Status: Unknown if ever smoked Preferred Language: Gambian Communication Ability: Dementia Communication Ability Comment: Dementia at baseline Rn Neurosurgical Required: No Beliefs That Will Affect Care: None Current Living Situation: Personal Care Facility Current Living Situation Comment: Lives in [place] [facility] Assistive Devices: Walker and Wheelchair Review of Systems Review of Systems: Unobtainable due to cognitive status Physical Exam Constitutional: well developed; + not well nourished and no acute distress Eyes: PERRL, conjunctivae normal, anicteric sclerae ENMT: Unable to assess mucous membranes as he does not open his mouth Neck: trachea midline, no thyromegaly Respiratory: normal respiratory effort, lungs clear to auscultation Cardiovascular: RRR, no murmur, no edema Gastrointestinal (Abdomen): normal bowel sounds, soft, nontender, no hepatosplenomegaly Neurologic: awake and + confused; + does not move all extremities (b/l upper extremities only) Motor/Sensory: no tremor Cranial Nerves: PERRL Mostly sleeping in bed but will open his eyes to voice. Slightly able to lift arms on command but unable to follow any complex commands. Cogwheel rigidity in bilateral upper extremities. No tremors noted at rest. Unable to assess pronator drift. Unable to assess sensation. Psychiatric: Orientation: alert; + not oriented x 3 Results & Data Results & Data ([facility]) Vital Signs (Past 12 Hours) Vital Signs Temp Pulse Pulse Resp BP BP Pulse Ox 11/10/22 13:35 63 15 99/56 L 94 11/10/22 13:11 65 18 110/62 93 11/10/22 13:15 66 11/10/22 12:42 35.6 C L 64 20 108/65 95 11/10/22 12:42 35.6 C L 64 20 108/65 95 O2 Del Method 11/10/22 13:35 11/10/22 13:11 11/10/22 13:15 11/10/22 12:42 Room Air 11/10/22 12:42 Room Air Laboratory Results Abnormal lab results 11/10/22 11/10/22 Range/Units 12:45 12:45 BUN 25 H (6-23) mg/dl Creatinine 1.49 H (0.6-1.4) mg/dl Glucose 172 H (70-99(Fasting)) mg/dl Total Bilirubin 1.4 H (0.2-1.0) mg/dl TSH 6.238 H (0.300-4.500) uIu/ml Diagnostic Findings CT SCAN OF THE BRAIN WITHOUT IV CONTRAST CLINICAL HISTORY: Change in mental status. COMPARISON STUDY: CT of the brain dated 10/30/2022. TECHNIQUE: Unenhanced axial CT scan of the brain is performed from the vertex to the skull base. A dose lowering technique was utilized adhering to the principles of ALARA. CT DOSE: 537.48 mGy.cm FINDINGS: Brain parenchyma: There is age-related involutional change noting moderate subcortical and periventricular microangiopathic disease. There is no hemorrhage, mass effect, or evidence of acute territorial ischemia by CT criteria. 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 Doss-white matter differentiation is preserved. No extra-axial fluid collection is seen. Ventricles, sulci, cisterns: Prominent secondary to involutional change. Intracranial vasculature: There is atherosclerotic calcification of the cavernous carotid and vertebral arteries. Calvarium: Unremarkable. Sinuses and mastoids: The visualized paranasal sinuses are clear. The mastoid air cells are well pneumatized. Orbits: The bony orbits are grossly intact. IMPRESSION: There is no hemorrhage, mass effect, or evidence of acute territorial ischemia by CT criteria. SINGLE VIEW CHEST CLINICAL HISTORY: Change in mental status. FINDINGS: An AP, portable, upright chest radiograph is compared to study dated 10/30/2022. The patient is status post midline sternotomy. The heart is enlarged noting atherosclerotic calcification of the thoracic aorta. The pulmonary vasculature is noncongested. Chronic interstitial thickening similar to previous. Airspace opacities are seen at the left lung base. Right lung is clear noting basilar atelectasis. No large pleural effusion or pneumothorax is identified. The skeletal structures are osteopenic. The bony thorax is grossly intact. Arthritic change is noted in the shoulders and spine. IMPRESSION: 1. Cardiomegaly without radiographic evidence of congestive failure. 2. There are airspace opacities at the left lung base. This could represent scarring/atelectasis versus an infectious/inflammatory pneumonitis. Clinical correlation will be required. Medications Administered ER Medications Given: NSS @ 125 ml/hr ECG Rate (beats per minute): 64 Rhythm: normal sinus Findings: + 1st degree AV block Code Status & VTE Plan Code Status DNR/DNI VTE Prophylaxis Plan VTE Prophylaxis will be ordered: No PG Care Time/CCT Total # of Minutes Spent Total Time Spent with Patient: Total time spent is greater than 50% in coordination of care (as documented) at patient's floor/unit and/or counseling patient: Coding Level of Care Code 75657 INT INP/OBS CARE 375MIN Diagnoses Unresponsive episode R41.89 Cogwheel rigidity R29.898 Discharge planning issues Z02.9 Altered mental status R40.0 Altered mental status type: somnolence Abnormal CXR R93.89 Dehydration E86.0 Dementia F03.90 Slurred speech R47.81 (4) Altered mental status Altered mental status type: somnolence Qualified Code(s): R40.0 - Somnolence
[2022-11-10 15:04] LABS: Appearance Urine Cloudy (Clear); Bacteria Urine Automated Negative (Negative); Bilirubin Urine Negative (Negative); Blood Urine Negative (Negative); Color Urine Dark Yellow; Epithelial Cell Urine Auto >30 /lpf (0-5); Glucose Urine UA 1+ (Negative); Ketones Urine 1+ (Negative); Leukocyte Esterase Urine Negative (Negative); Nitrite Urine Negative (Negative); Protein Urine 1+ (Negative); RBC Urine Automated 0-4 /hpf (0-4); Specific Gravity Urine 1.023 (1.000-1.030); Urobilinogen Urine Negative (Negative); pH Urine 5.5 (4.5-7.5)
[2022-11-10 15:13] LABS: Mucus Urine Present (None Prsent)
[2022-11-10 16:13] LABS: Adenovirus PCR Not Detected (NotDetected); Bordetella parapertussis PCR Not Detected (NotDetected); Bordetella pertussis PCR Not Detected (NotDetected); Chlamydia pneumoniae PCR Not Detected (NotDetected); Coronavirus 229E PCR Not Detected (NotDetected); Coronavirus CoV-2 (COVID19)PCR Not Detected (NotDetected); Coronavirus HKU1 PCR Not Detected (NotDetected); Coronavirus NL63 PCR Not Detected (NotDetected); Coronavirus OC43PCR Not Detected (NotDetected); Human Metapneumovirus PCR Not Detected (NotDetected); Influenza A PCR Not Detected (NotDetected); Influenza B PCR Not Detected (NotDetected); Mycoplasma pneumoniae PCR Not Detected (NotDetected); Parainfluenza Virus 1 PCR Not Detected (NotDetected); Parainfluenza Virus 2 PCR Not Detected (NotDetected); Parainfluenza Virus 3 PCR Not Detected (NotDetected); Parainfluenza Virus 4 PCR Not Detected (NotDetected); Respiratory Syncytial VirusPCR Not Detected (NotDetected); Rhinovirus/Enterovirus PCR Not Detected (NotDetected)
[2022-11-10] MEDS ORDERED: GADOBUTROL 30ML VIAL IV ONE (16:28)
--- NOTE | 2022-11-10 17:16 | Magnetic Resonance Report ---
MRI OF THE BRAIN COMBO CLINICAL HISTORY: Change in mental status. Unresponsiveness. Seizure. COMPARISON STUDY: CT of the brain performed earlier the same date 11/10/2022. TECHNIQUE: MRI of the brain was performed utilizing various T1 and T2-weighted sequences in the axial , sagittal, and coronal planes. Contrast-enhanced sequences were acquired following the administratio n of 9.5 cc of Gadavist. The examination was performed using the seizure protocol. FINDINGS: Brain parenchyma: There is age-related involutional change noting moderate to advanced confluent subc ortical and periventricular microangiopathic disease. There is no hemorrhage or mass effect. There is no restricted diffusion to suggest acute ischemia. An 8 mm enhancing meningioma is seen along the ri ght aspect of the posterior falx on axial image #17. No additional enhancing mass lesion is identifie d on the postcontrast images. Doss-white matter differentiation is preserved. Chronic lacunar infarct s are present within the basal ganglia. No extra-axial fluid collection is seen. The cerebellar tonsi ls are normal in configuration. Ventricles, sulci, and cisterns: Prominent secondary to involutional change. Pituitary and sella: Unremarkable. Intracranial vasculature: Normal flow voids are maintained at the skull base. Orbits: The bony orbits are grossly intact. Orbital contents are normal in appearance. Sinuses and mastoids: There is a 10 mm retention cyst in the right maxillary antrum. The remaining pa ranasal sinuses and mastoid air cells are clear. Calvarium: Unremarkable. Cervical cord: Partially visualized cervical spinal cord is normal in morphology and signal intensity . IMPRESSION: Chronic changes as above with no acute intracranial abnormality. ACT 112: Negative or not required by law. Electronically signed by: Von Burris M.D. 11/10/2022 5:14 PM
[2022-11-10] MEDS ORDERED: ACETAMINOPHEN 325 MG TAB PO PRN (17:54)
[2022-11-10] MEDS: LACTATED RINGER'S 1,000 ML IV SCH (18:10)
[2022-11-10] MEDS ORDERED: OLANZAPINE 2.5 MG TAB PO PRN (20:15)
[2022-11-10] MEDS: ATORVASTATIN 10 MG TAB PO SCH ×2 (21:04→21:21)
[2022-11-10] MEDS: QUEtiapine FUMARATE 25 MG TABLET PO SCH ×2 (21:04→21:22)
[2022-11-10] MEDS: FINASTERIDE 5 MG TAB PO SCH ×2 (21:04→21:21)
[2022-11-10] MEDS: METOPROLOL TARTRATE 25 MG TAB PO SCH ×2 (21:05→21:20)
[2022-11-10] MEDS: OLANZapine 10 MG/2.1 ML SDV IM PRN (21:15)
[2022-11-10] MEDS ORDERED: METOPROLOL TARTRATE 1 MG/ML VIAL IV ONE (21:47)
[2022-11-11] MEDS: LACTATED RINGER'S 1,000 ML IV SCH (04:00)
[2022-11-11] MEDS: OLANZapine 10 MG/2.1 ML SDV IM PRN (04:44)
--- NOTE | 2022-11-11 07:00 | Hospitalist Progress Note ---
Date of Service November 11, 2022 Assessment & Plan (1) Advanced care planning/counseling discussion: (2) Dementia: (3) Cogwheel rigidity: Plan Unresponsive Episode/Altered Mental Status -Suspect his increased sleepiness due to Seroquel vs. worsening end stage dementia -Dementia may explain progression of hypersomnia/transient episodes of unresponsiveness. Antipsychotics may be making mobility worse. -During prior admissions, patient remained less responsive/interactive in comparison to significant agitation during current admission -Palliative Care consulted, appreciate rec's -Could consider increasing Seroquel/Q4H Zyprexa vs. IM Haldol Discharge Planning Issues -Per Palliative discussions today, family hoping for dementia unit placement -Referral placed to [facility], family also interested in Hospice program -At this point, awaiting response for possible placement Abnormal CXR -Low suspicion of pneumonia. -WBC and procalcitonin negative -If not improving would consider repeating CXR Dehydration -Cr 1.49 from baseline 1.23 -LR 2L @ 125ml/hr received on admission, encourage PO intake Dementia -Never had neurological evaluation, but presentation consistent with advanced dementia -Longstanding for > 1 year -Will have DATA WAREHOUSING ARCHITECT assessment while here to make sure he is safe to swallow. Admission and Anticipated Discharge Date Admission Date: November 10, 2022 Supervising Physician Co-Signing Physician Notes I personally examined the patient and verified all welsh points of history and exam, discussed case, and agree with decision making with Dr Resendez No meaningful HPI review of systems obtainable. Discussed with family, updated the best my ability and to their satisfaction. No new concerns identified. They would like him to go to personal care with hospice. Discussed with case management. Vitals noted, calm whenever I see him, no distress. Breathing unlabored no accessory muscle use cardio is regular without rubs murmurs or gallops and lungs are clear. Skin shows no rashes no pallor or icterus. Delirium superimposed on dementiadelirium likely from dehydration. Discussed again, and feels fairly confident he was probably not drinking much at personal care again. Continue to follow p.o. fluid intake. Continue Seroquel and as needed Zyprexa for now. Much more calm this afternoon when I saw him. Otherwise as above Subjective 11/11: Patient seen and examined at bedside. Patient was combative overnight. While at bedside, patient was attempting to get out of bed and pull at the bandages/IV at his arm. No family at bedside during encounter, further discussion with family today was lead by Palliative Care. Review of Systems Review of Systems: As per above Physical Exam Constitutional: WD/WN, vitals as above Eyes: Anicteric sclera ENMT: Moist mucous membranes Respiratory: normal respiratory effort, lungs clear to auscultation Cardiovascular: RRR, no murmur, no edema Gastrointestinal (Abdomen): normal bowel sounds, soft, nontender, no hepatosplenomegaly Skin: Bandages around forearms Psychiatric: Agitated, pulling at lines/bandages and combative at times. Not oriented. Results & Data Results & Data ([facility]) Vital Signs (Past 12 Hours) Vital Signs Temp Pulse Pulse Resp BP Pulse Ox O2 Del Method 11/11/22 03:34 36.6 C 88 18 143/85 H 95 Room Air 11/10/22 23:45 87 11/10/22 23:13 36.9 C 93 H 18 136/80 95 Room Air 11/10/22 22:32 Room Air 11/10/22 21:03 36.5 C 91 H 16 134/58 L 95 Room Air Resident Activity Tracking Resident Involvement: Resident Care Provided Care Provided: Adult Hospital Medicine
[2022-11-11] MEDS: ISOSORBIDE MONO EXTENDED REL 30 MG TABCR PO SCH (08:21)
[2022-11-11] MEDS: ASPIRIN 81 MG ECTAB PO SCH (08:21)
[2022-11-11] MEDS: METOPROLOL TARTRATE 25 MG TAB PO SCH ×2 (08:21→20:20)
[2022-11-11] MEDS: TAMSULOSIN HCL 0.4 MG CAP PO SCH (08:22)
[2022-11-11 09:10] LABS: Basophils # (auto) 0.04 K/uL (0-0.2); Basophils % (auto) 0.5 %; Eosinophils # (auto) 0.09 K/uL (0-0.50); Eosinophils % (auto) 1.2 %; Hematocrit (blood only) 43.2 % (42.0-52.0); Hemoglobin 14.6 g/dl (14.0-18.0); Immature Granulocytes # (auto) 0.03 K/uL (0.01-0.20); Immature Granulocytes % (auto) 0.4 %; Lymphocytes # (auto) 1.48 K/uL (1.2-3.4); Mean Corpuscular Hemoglobin 30.1 pg (25.0-34.0); Mean Corpuscular Hgb Conc 33.8 g/dL (32.0-36.0); Mean Corpuscular Volume 89.1 fL (80.0-100.0); Mean Platelet Volume 11.2 fL (9.4-12.4); Monocytes # (auto) 0.72 K/uL (0.11-0.59); Monocytes % (auto) 9.7 %; Neutrophils # (auto) 5.05 K/uL (1.40-6.50); Neutrophils % (auto) 68.2 %; Platelet Count 179 K/uL (130-400); RDW Coefficient of Variation 13.7 % (11.5-14.5); RDW Standard Deviation 44.4 fL (36.4-46.3); Red Blood Count 4.85 M/uL (4.70-6.10); White Blood Count 7.41 K/ul (4.8-10.8)
[2022-11-11 09:25] LABS: Albumin Globulin Ratio 1.6 (0.9-2); Albumin Level 3.8 gm/dl (3.4-5.0); BUN Creatinine Ratio 14.9 (10-20); Bilirubin,Total 1.3 mg/dl (0.2-1.0); Calcium 8.5 mg/dl (8.5-10.1); Creatinine Clr Calc Pharmacy 44.7 ml/min; Est GFR (Non-African American) 48.3 ml/min; Globulin 2.4 gm/dl (2.5-4.0); Potassium 4.1 mmol/L (3.5-5.1); Total Protein 6.2 gm/dl (6.0-8.3)
--- NOTE | 2022-11-11 09:41 | Palliative Care Consultation ---
Date of Consultation November 11, 2022 Assessment & Plan (1) Palliative care by specialist: Patient is not decisional. He is unable to engage in a meaningful discussion at this time. There is no family present. I attempted to call his and left a voicemail requesting a call back. Met with pt/family. (2) Advanced care planning/counseling discussion: Family meeting is recommended to identify family's goals of care for patient as well as what his known or expressed wishes may have been prior to his neurocognitive degenerative decline. A plan of care can then be developed in alignment with what his wishes are known to be before his illness progressed. This case was reviewed briefly with the primary team, Dr. Pollack. She shared the family had expressed some desire to possibly bring patient home from the long-term, however medical teams remain concerned that they will not have adequate caregiver support to provide him with the level of care he needs given the advanced age of his neurodegenerative disease. (3) Lewy body dementia: Lewy Body Dementia (LBD) is a progressive, neurodegenerative disease with unique features and cognitive, motor, sleep, and behavioral symptoms. These symptoms are similar to those of Alzheimers and Parkinsons disease, which may delay diagnosis. It is an incurable, neurodegenerative disease. LBD progression may be slow or rapid, and cognitive and behavioral symptoms worsen temporarily, because of pain, infection or other medical problem, which improves when the problem is resolved. The average duration of LBD (from the time of diagnosis to ) is 5-7 years. Initial symptoms may include visual hallucinations, acting out dreams or other sleep disturbances, cognitive impairment, or parkinsonian (tremor, rigidity, problems with balance and movement). Anticholinergic or antipsychotic properties should be used cautiously, if at all, and may cause sudden and sometimes severe deterioration. There are seven stages of LBD: 1. No Cognitive Decline 2. Very Mild Cognitive Decline 3. Mild Cognitive Decline 4. Moderate Cognitive Decline 5. Moderately Severe Cognitive Decline 6. Severe Cognitive Decline 7. Very Severe Cognitive Decline In the later stages of the disease, people with LBD are not able to do the basic self-care activities such as bathing, dressing, or toileting and often have increasing difficulties with movement that can affect walking, talking, and swallowing. These more severe problems also make it more difficult for the person with LBD to communicate or participate in activities and may cause weight loss, aspiration pneumonia, or falls that result in broken hips or wrists. Behavior cannot be easily redirected for LBD patients ryder when they become agitated/exhibit aggression, compounded by the fact that their trigger points are a moving target. In the later stages, extreme muscle rigidity and sensitivity to touch develop along with visual hallucinations, poor regulation of body functions (autonomic nervous system), cognitive problems, sleep difficulties, fluctuating attention, depression, apathy. When the LBD patient needs constant/dependent care and QOL is greatly reduced, it is appropriate to offer hospice. Patient appears to be in end-stage severe to very severe cognitive decline. He is unable to follow commands. He is unable to control his body functions. He has a significant neurodegenerative, cognitive defect. (4) Unresponsive episode: (5) Altered mental status: Altered mental status type: somnolence Qualified Code(s): R40.0 - Somnolence Plan I attempted to call patient's to initiate and advance care planning/goals of care discussion. I left her a voice message on her answering machine requesting a call back. Family meeting at this time is needed to determine what the goals of care should be for this patient based on family's wishes as well as what patient may have expressed to them prior to his decline and to align those wishes with the resources that are available in this community to assist him. 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 The complexity of this patient's care needs at home I suspect will be intense and I am unsure about the total availability of actual caregiver support. This can be better elicited during a family meeting. For his agitation, I suggest the following: Increase quetiapine to 25 mg twice daily, change Zyprexa to 2.5 mg IM twice daily for the next 2 to 3 days. Nursing teams and expressed concerns about patient's ability to safely take medications: He pouches them in his cheek or spits them out. He is not reliably or consistently swallowing oral medications. Options at this point become a little bit more limited in terms of how to control his behavioral symptomology. If he cannot demonstrate some reliability to take his oral medications, then an alternate suggestion will be to use Haldol and an IM Depo format which would be a monthly injection. This is a method that can be continued at the long-term but I am less sure about whether or not he can be continued in the home setting. It is possible this might be allowable under hospice but would require approval from their paramedical aide prior to initiation. History of Present Illness Reason for Consultation: "GOC" Attending Physician: Lance Sierra DO History of Present Illness Normal is a 82yo male with dementia who was brought to the ED SNF/[facility] with "unresponsive episode." SNF team stated he is at baseline mobile and conversational but difficult to understand him due to his slurred speech. SNF called his today as the were unable to wake him and felt he wasn't responsive --> identical to previous admission here 11/01 - 11/04/22 for same, which resolved without significant intervention and he was kept on the same dose of Seroquel on discharge. At the time of my evaluation, patient is seen at bedside with no family present. He is agitated, restless and trying to get out of bed repeatedly. He is requiring 2 nursing assistance to monitor him and keep him safely in bed. He is unable to follow commands. He is otherwise awake and alert but does not appear oriented to person place or time. Allergies Allergy/AdvReac Type Severity Reaction Status Date / Time No Known Allergies Allergy Mild Verified 11/10/22 15:03 Home Medications Medication Instructions Recorded Confirmed Type acetaminophen 325 mg tablet 650 mg PO Q6H PRN PAIN/FEVER > 101F 10/30/22 11/10/22 History (Tylenol) aspirin 81 mg tablet,delayed 81 mg PO QAM 10/30/22 11/10/22 History release atorvastatin 10 mg tablet 10 mg PO HS 10/30/22 11/10/22 History finasteride 5 mg tablet 5 mg PO HS 10/30/22 11/10/22 History isosorbide mononitrate 30 mg 30 mg PO QAM 10/30/22 11/10/22 History tablet,extended release 24 hr metoprolol tartrate 25 mg tablet 12.5 mg PO BID 10/30/22 11/10/22 History olanzapine 2.5 mg tablet 2.5 mg PO Q6H PRN 10/30/22 11/10/22 History AGITATION/AGGRESSION quetiapine 25 mg tablet (Seroquel) See Rx Instructions .Route .COMPLEX 10/30/22 11/10/22 History sennosides 8.6 mg tablet (senna) 17.2 mg PO HS PRN Constipation 10/30/22 11/10/22 History tamsulosin 0.4 mg capsule (Flomax) 0.4 mg PO QAM 10/30/22 11/10/22 History Patient History Medical History (Updated 11/11/22 @ 09:38 by Viola Holder DNP) Advanced care planning/counseling discussion Dementia Lewy body dementia Palliative care by specialist Social History Smoking Status: Unknown if ever smoked Preferred Language: Kyrgyz Communication Ability: Dementia Communication Ability Comment: Dementia at baseline Counseling Services Manager Required: No Beliefs That Will Affect Care: None Current Living Situation: Personal Care Facility Current Living Situation Comment: Lives in [facility] Assistive Devices: Walker and Wheelchair Review of Systems Review of Systems: Unobtainable due to cognitive status Physical Exam Physical Exam: Elderly male, agitated, restless and confused at baseline. Patient is unable to provide any history. He is unable to follow commands. There are some mild bitemporal wasting noted. There is agitated movements in bed, with attempts to try and get out of bed. There is a mild tremor noted. There is no respiratory distress. There is no gross JVD. Skin is mildly diaphoretic and flushed. Results & Data ([facility]) Vital Signs (Past 12 Hours) Vital Signs Temp Pulse Pulse Resp BP BP Pulse Ox 11/11/22 07:58 36.9 C 88 18 142/78 H 94 11/11/22 07:34 83 11/11/22 03:34 36.6 C 88 18 143/85 H 95 11/10/22 23:45 87 11/10/22 23:13 36.9 C 93 H 18 136/80 95 11/10/22 22:32 O2 Del Method 11/11/22 07:58 Room Air 11/11/22 07:34 11/11/22 03:34 Room Air 11/10/22 23:45 11/10/22 23:13 Room Air 11/10/22 22:32 Room Air Laboratory Results Data reviewed Diagnostic Findings Data reviewed PG Care Time/CCT Total # of Minutes Spent Total Time Spent: 75 Total Time Spent with Patient: Total time spent is greater than 50% in coordination of care (as documented) at patient's floor/unit and/or counseling patient: [place] [address] IN/OBS CONSULT LVL 5,80M Patient Type New History Comprehensive Exam Detailed Medical Decision Making Moderate Complexity Diagnoses Palliative care by specialist Z51.5 Advanced care planning/counseling discussion Z71.89 Lewy body dementia G31.83; F02.80 Unresponsive episode R41.89 Altered mental status R40.0 Altered mental status type: somnolence
--- NOTE | 2022-11-11 13:48 | Palliative Family Discussion ---
Date of Service November 11, 2022 Patient Directed Conference Time of [id number] Participants: Viola Holder DNP Patient participation: unable to participate due to dementia Patient Support System: , sons x 2 at bedside Other Healthcare Provider Participation: None Meeting Location: bedside Advanced Directive available: none on file The patient's surrogate medical decision maker participated: yes, per ACT 169, is HCP Legally authorized health care proxy: Other surrogate: sons x2 A family meeting was held for [employer] Laws ASA. This meeting was necessary for determining the appropriate course of treatment. Topics of Discussion Topics of Discussion: 1. Stage 6-7 Lewy Body Dementia. pt is ambulatory but not continent, needs help with all ADLs and feeding. He has largely unintelligible speech. 2. Patient needs placement. Family very unhappy with his care at current SNF: states "I came to see him, he was wet, he was dirty, they hadn't fed him and he looked awful. They were not caring for him. They didn't care about him at all." They have been looking into other facilities who have a locked dementia unit bc patient being ambulatory means he cannot go to a generic SNF Dementia floor. They have been in communication with [facility] who advised family they have a bed available and can take pt. Sons tell me they also contacted [facility] who have accepted pt case, to be added to his care at [facility]. 3. Family has an electronic service technician who is assisting with getting POA for . They also tell me the electronic service technician advised them once she has POA, they can then submit application for medicaid bc they understand it may help offset costs by providing a payor for bed and board fees at SNF. 4. Patient's agitation and restlessness were managed ok with Seroquel but he was sedated. When dose lowered, he became agitated and more disruptive. We had a long discussion about the goals of care at this state of his LBD: they are in agreement as a family that what matters most is he is someplace safe and his behaviors are a bit more controlled. is upset she cannot bring him home but tells me her sons advised against this because pt has too many needs. I reiterated same concern and added that safety was another. He has become too much for her to handle alone and sons are working threading machine feeder automatic. Patient has relatively intact strength and because he is still mobile, this would equate to more danger/threat of harm to who is more frail. She verbalized agreement. 5. I advised them that to improve behav disturbances associated with advanced/end stage dementia for patients who are unable to or refuse to take PO meds/cannot cooperate with PO med administration, IM Depot Haldol is a reasonable solution for optimizing patient symptom control/relief of distress and comfort. Would suggest we start with 20-30 mg IM (the equivalent of 0.5-1mg PO/day) and titrate up weekly from there, adding additional 10 mg IM until we get a sense of a good dose on board, then give that monthly. 6. I specifically addressed cocnerns re dementia drugs and reviewed the following: based on 45 trials (n=22,431) and three observational studies (n=190,076) that evaluated acetylcholinesterase inhibitors (AChEIs) (i.e., donepezil, galantamine, rivastigmine) and memantine, these medications may improve measures of global cognitive function in the short term, but the magni tude of change is small. (Leon CD, Monika LA, Rossbibi RC, et al. Screening for Cognitive Impairment in Older Adults: An Evidence Update for the U.S. Preventive Services Task Force. [place] (): Agency for Healthcare Research and Quality ([place]); October 2019.) 7. I also provided the folowing overview of Dementia FAQs: Aggressive medical treatment for residents with advanced dementia is often inappropriate for medical reasons, has a low rate of success, and can have negative outcomes that hasten functional decline and . ([place] Ger[employer] ics Society Ethics Committee and Clinical Practice and Models of Care Committee. J Am Geriatr Soc. 2014 Aug;62(8):1590-3 and Fernando SL, Coryo JM, Moss SC, Mor V. A national study of the location of for older persons with dementia. J Am Geriatr Soc 2005; 53(2):299-305.) Tube feeding in residents with advanced dementia does not increase survival. It does not prevent aspiration pneumonia, malnutrition or pressure ulcers. It does not reduce the risk of infections or improve functional status or comfort of the patient. (from: Jey COHN, Rex T Percutaneous endoscopic gastrostomy does not prolong survival in patients with dementia. Arch Relief Salesperson Med 2003; 163(11):9708-4660 AND Alfa DE, Raad ROMEL, Jimbo J, Man S, Michael RS. High short-term mortality in hospitalized patients with advanced dementia - Lack of benefit of tube feeding. Arch Relief Salesperson Med 2001; 161(4):594- 599.) Simple strategies involving hands-on care by well-trained staff such as massage, oral hygiene, changes in diet, and hand-feeding -- can prevent infection and manage feeding problems without resort to tube-feeding. Tube feeding does not prevent aspiration pneumonia and might actually increase its incidence, and does not prevent the consequences of malnutrition Hand feeding can be provided until the beginning of the dying process when all physiological processes shut down, note that cognitively intact cancer patients indicate that dying residents do not feel hunger and thirst. Voluntary refusal of food and liquids is often initiated by hospice patients and does not result in discomfort I recommend hospice at [facility]: Hospice is a valuable service for persons with advanced dementia, particularly in management of pain, continuous involvement of the primary physician, and avoidance of hospitalization. Social support provided to caregivers is also important given their high levels of depressive symptoms and anxiety. The goal of care for residents with advanced dementia is primarily maintenance of function and patient should not be transferred to an acute care setting because hospitalization results in decline of functional abilities that do not recover after discharge back into group home. Other Content of Meetin. Opportunity given for participants to speak and ask questions. 2. Participants were assured of attention to patient comfort: we discussed changes pt may move through in the dying process including but not limited to sleeping more, disorientation when awake, restlessness, diminished senses/inability to respond to stimulus although ability to be aware of them remains intact longer, and changes in body temperatures, skin changes/mottling/cyanosis, respiratory pattern changes, and oral secretions. Family verbalized understanding. The goal is to assure a peaceful . 3. Reassurance provided. 4. Support was provided for informed, good-maria fernanda decisions. 5. Emotions expressed by family were acknowledged and addressed. Sons asked about early testing for themselves and were referred to Dr Homer Costello/Director of [facility] or [facility]'s Division of Aging & Dementia:Lewy Body Dementia Association Research Center /Drs. Stephen Fox and Fariha Covington. 6. I have updated primary team Rigo/Efra, nursing S Donna, care krys/Bebe. 7. Plan of Care: PATIENT IS NOW COMFORT CARE /FAMILY IN AGREEMENT. DISPO PLAN IS DEMENTIA UNIT WITH HOSPICE NOTED IN DISCUSSION ABOVE. RECOMMEND DEPOT HALDOL IM MONTHLY, WOULD SUGGEST STARTING DOSE WHILE IN HOUSE AND WILL DEFER TO PRIMARY TEAM FOR ORDERS. family in agreement for comfort care: please stop monitors, labs and testing, non essential/non comfort meds and simplify patient regimen. Palliative Medicine was consulted to assist with ACP/GOC, which has been completed and documented above. I will sign off but remain available for re engagement if needed. Time Involved in Meetinmin in meeting face to face ACP I spent 70 minutes face to face discussion with family, addressing this complex case: 50min Advance Care Planning/Goals of Care discussions as detailed above in note (must be >16min) 5 in subsequent review and synthesis of assessment and plan 15 in communicating with other providers regarding the patient's case: nursing, primary team, care krys/Bebe.
--- NOTE | 2022-11-11 17:53 | Billing Data ---
Date of Service November 11, 2022 Coding Level of Care Code 41395 SUB INP/OBS CARE MIN
[2022-11-11] MEDS: ATORVASTATIN 10 MG TAB PO SCH (20:18)
[2022-11-11] MEDS: FINASTERIDE 5 MG TAB PO SCH (20:19)
[2022-11-11] MEDS: QUEtiapine FUMARATE 25 MG TABLET PO SCH (20:20)
--- NOTE | 2022-11-11 22:47 | Electrocardiogram Report ---
Test Reason : Blood Pressure : / mmHG Vent. Rate : 064 BPM Atrial Rate : 064 BPM P-R Int : 262 ms QRS Dur : 102 ms QT Int : 432 ms P-R-T Axes : 070 003 140 degrees QTc Int : 445 ms Sinus rhythm with 1st degree A-V block Possible Left atrial enlargement Low voltage QRS Cannot rule out Anterior infarct (cited on or before 30-OCT-2022) Nonspecific T wave abnormality Abnormal ECG When compared with ECG of 30-OCT-2022 12:31, Criteria for Inferior infarct are no longer Present Confirmed by Carlos Denise ([id number]) on 11/11/2022 10:47:09 PM Referred By: [facility] Confirmed By:Carlos Denise
--- NOTE | 2022-11-12 07:59 | Hospitalist Progress Note ---
Date of Service November 12, 2022 Assessment & Plan (1) Advanced care planning/counseling discussion: (2) Dementia: (3) Cogwheel rigidity: Plan Unresponsive Episode/Altered Mental Status -Suspect his increased sleepiness due to Seroquel vs. worsening end stage dementia -Dementia may explain progression of hypersomnia/transient episodes of unresponsiveness. Antipsychotics may be making mobility worse. -During prior admissions, patient remained less responsive/interactive in comparison to significant agitation during current admission -Palliative Care consulted, appreciate rec's -Could consider increasing Seroquel/Q4H Zyprexa vs. IM Haldol Discharge Planning Issues -Per Palliative discussions, family hoping for dementia unit placement -Patient's family decided today [facility] -Planning towards discharge tomorrow Abnormal CXR -Low suspicion of pneumonia. -WBC and procalcitonin negative -If not improving would consider repeating CXR Dehydration -Cr 1.49 from baseline 1.23 -LR 2L @ 125ml/hr received on admission, encourage PO intake Dementia -Never had neurological evaluation, but presentation consistent with advanced dementia -Longstanding for > 1 year Admission and Anticipated Discharge Date Admission Date: November 10, 2022 Supervising Physician Co-Signing Physician Notes I personally examined the patient and verified all welsh points of history and exam, discussed case, and agree with decision making with Dr Resendez No meaningful HPI review of systems obtainable. d/w case management Vitals noted, calm and resting whenever I see him, no distress. Breathing unlabored no accessory muscle use cardio is regular without rubs murmurs or gallops and lungs are clear. Skin shows no rashes no pallor or icterus. Delirium superimposed on dementiadelirium likely from dehydration. case management discussing situation with family as far as disposition. held off on IM haldo depo since overall has been more calm, has not had significant PRN needs, etc Otherwise as above Subjective 11/12: Patient seen and examined at bedside. No acute events overnight. Discussed with nurse, he has been more calm in the past day and slept all night without issue. At time of exam, he is still sleeping. No increased agitation. Unable to obtain further ROS or HPI, patient appears in no acute distress. Review of Systems Review of Systems: As per above Physical Exam Constitutional: WD/WN, vitals as above Eyes: Eyes closed, no drainage Respiratory: normal respiratory effort, lungs clear to auscultation Cardiovascular: RRR, no murmur, no edema Gastrointestinal (Abdomen): normal bowel sounds, soft, nontender, no hepatosplenomegaly Skin: no rashes, warm and dry Psychiatric: Sleeping, not alert or oriented Results & Data Results & Data ([facility]) Vital Signs (Past 12 Hours) Vital Signs Temp Pulse Pulse Resp BP Pulse Ox O2 Del Method 11/12/22 07:32 36.3 C L 74 18 148/83 H 99 Room Air 11/12/22 07:26 60 11/12/22 00:23 76 11/11/22 23:16 37.2 C 82 20 164/92 H 98 Room Air 11/11/22 20:23 167/94 H Resident Activity Tracking Resident Involvement: Resident Care Provided Care Provided: Adult Hospital Medicine
[2022-11-12] MEDS: ASPIRIN 81 MG ECTAB PO SCH (13:07)
[2022-11-12] MEDS: TAMSULOSIN HCL 0.4 MG CAP PO SCH (13:07)
[2022-11-12] MEDS: ISOSORBIDE MONO EXTENDED REL 30 MG TABCR PO SCH (13:07)
[2022-11-12] MEDS: METOPROLOL TARTRATE 25 MG TAB PO SCH ×2 (13:07→22:01)
--- NOTE | 2022-11-12 13:21 | Billing Data ---
Date of Service November 12, 2022 Coding Level of Care Code 72930 SUB INP/OBS CARE
[2022-11-12] MEDS: OLANZapine 10 MG/2.1 ML SDV IM PRN (19:42)
[2022-11-12] MEDS ORDERED: HALOPERIDOL LACTATE 5 MG/ML 1 ML VIAL IM STA (20:17)
--- NOTE | 2022-11-12 21:38 | Electroencephalogram ---
EEG Procedure Note Date of Service November 11, 2022 Start / End Times Start Time: : End Time: 10:[address] Zunilda Nieto History An 82 year old male with unresponsiveness and staring spells. EEG performed for evaluation of epileptiform activity. Home Medication List Medication Instructions Recorded Confirmed Type acetaminophen 325 mg tablet 650 mg PO Q6H PRN PAIN/FEVER > 101F 10/30/22 11/10/22 History (Tylenol) aspirin 81 mg tablet,delayed 81 mg PO QAM 10/30/22 11/10/22 History release atorvastatin 10 mg tablet 10 mg PO HS 10/30/22 11/10/22 History finasteride 5 mg tablet 5 mg PO HS 10/30/22 11/10/22 History isosorbide mononitrate 30 mg 30 mg PO QAM 10/30/22 11/10/22 History tablet,extended release 24 hr metoprolol tartrate 25 mg tablet 12.5 mg PO BID 10/30/22 11/10/22 History olanzapine 2.5 mg tablet 2.5 mg PO Q6H PRN 10/30/22 11/10/22 History AGITATION/AGGRESSION quetiapine 25 mg tablet (Seroquel) See Rx Instructions .Route .COMPLEX 10/30/22 11/10/22 History sennosides 8.6 mg tablet (senna) 17.2 mg PO HS PRN Constipation 10/30/22 11/10/22 History tamsulosin 0.4 mg capsule (Flomax) 0.4 mg PO QAM 10/30/22 11/10/22 History Inpatient Medication List Acetaminophen (Acetaminophen 325 Mg Tab) 650 mg PO Q4H PRN PRN Reason: Pain or Fever Stop: 12/10/22 17:53 Last Admin: 11/11/22 12:19 Dose: 650 mg Documented By: AJIT Aspirin (Aspirin 81 Mg Ectab) [facility] [place] Stop: 12/11/22 08:59 Last Admin: 11/12/22 13:07 Dose: 81 mg Documented By: Admin: 11/11/22 08:21 Dose: 81 mg Documented By: MOIRAR Atorvastatin Calcium (Atorvastatin 10 Mg Tab) 10 mg PO HS [facility] Stop: 12/10/22 20:59 Last Admin: 11/11/22 20:18 Dose: 10 mg Documented By: Admin: 11/10/22 21:21 Dose: Not Given Documented By: DM Finasteride (Finasteride 5 Mg Tab) 5 mg PO HS [facility] Stop: 12/10/22 20:59 Last Admin: 11/11/22 20:19 Dose: 5 mg Documented By: Admin: 11/10/22 21:21 Dose: Not Given Documented By: DM Isosorbide Mononitrate (Isosorbide [place] Extended Rel 30 Mg Tabcr) 30 mg PO QAM ALEXIS Stop: 12/11/22 08:59 Last Admin: 11/12/22 13:07 Dose: 30 mg Documented By: Admin: 11/11/22 08:21 Dose: 30 mg Documented By: AJIT Metoprolol Tartrate (Metoprolol Tartrate 25 Mg Tab) 12.5 mg PO BID [facility]LEX[facility] Stop: 12/10/22 20:59 Last Admin: 11/12/22 13:07 Dose: 12.5 mg Documented By: Admin: 11/11/22 20:20 Dose: 12.5 mg Documented By: Admin: 11/11/22 08:21 Dose: 12.5 mg Documented By: Admin: 11/10/22 21:20 Dose: Not Given Documented By: DM Olanzapine (Olanzapine 10 Mg/2.1 Ml Sdv) 2.5 mg IM Q4H PRN PRN Reason: Agitation (at risk to self or others) Stop: 12/10/22 20:14 Last Admin: 11/12/22 19:42 Dose: 2.5 mg Documented By: Admin: 11/11/22 04:44 Dose: 2.5 mg Documented By: Admin: 11/10/22 21:15 Dose: 2.5 mg Documented By: RAFFI Quetiapine Fumarate (Quetiapine Fumarate 25 Mg Tablet) 25 mg PO HS ALEXIS Stop: 12/10/22 20:59 Last Admin: 11/11/22 20:20 Dose: 25 mg Documented By: Admin: 11/10/22 21:22 Dose: Not Given Documented By: DM Tamsulosin HCl (Tamsulosin Hcl 0.4 Mg Cap) 0.4 mg PO QAM [facility] Stop: 12/11/22 08:59 Last Admin: 11/12/22 13:07 Dose: 0.4 mg Documented By: Admin: 11/11/22 08:22 Dose: 0.4 mg Documented By: RRR Discontinued Medications Gadobutrol (Gadobutrol 30ml Vial) 9.5 ml IV ONCE ONE Stop: 11/10/22 16:29 Last Admin: 11/10/22 16:28 Dose: 9.5 ml Documented By: NADER Sodium Chloride (Nss 1000ml) 1,000 mls @ 125 mls/hr IV .Q8H [facility]LEX[facility] Stop: 12/10/22 12:44 Last Infusion: 11/10/22 18:37 Dose: 0 mls/hr Documented By: Infusion: 11/10/22 16:55 Dose: 125 mls/hr Documented By: Admin: 11/10/22 13:08 Dose: 125 mls/hr Documented By: RAHEL Ceftriaxone Sodium (Rocephin) 2,000 mg in 70 mls @ 140 mls/hr IV NOW STA Stop: 11/10/22 14:38 Last Admin: 11/10/22 15:02 Dose: Not Given Documented By: RAHEL Azithromycin 500 mg/ Dextrose 255 mls @ 125 mls/hr IV ONE ONE Stop: 11/10/22 16:11 Last Admin: 11/10/22 15:02 Dose: Not Given Documented By: RAHEL Lactated Ringer's (Lr) 1,000 mls @ 100 mls/hr IV .Q10H [facility] Stop: 11/11/22 13:53 Last Infusion: 11/11/22 14:19 Dose: 0 mls/hr Documented By: Admin: 11/11/22 04:00 Dose: 100 mls/hr Documented By: Infusion: 11/11/22 04:00 Dose: 100 mls/hr Documented By: Admin: 11/10/22 18:10 Dose: 100 mls/hr Documented By: RRJina Metoprolol Tartrate (Metoprolol Tartrate 1 Mg/Ml Vial) 5 mg IV NOW ONE Stop: 11/10/22 21:48 Last Admin: 11/10/22 22:09 Dose: Not Given Documented By: RAFFI Description This is a 21 electrode EEG with a single channel dedicated to limited EKG. The electrodes were placed in accordance with the International 10-20 system. REPORT; At the onset of the EEG the patient is awake. The background is symmetric. The posterior dominant rhythm is 6-7 Hz with some low amplitude fa ster faster frequencies in the frontal head region. Drowsiness is characterized by increased 5-7 theta activity with some intermixed delta activity. No stage II sleep transients are seen. Interpretation IMPRESSION: This is an abnormal routine EEG in a patient with altered mentation due to moderate generalized background slowing suggestive of a moderate non specific encephalopathy. No epileptiform activity or electrographic seizures are recorded.
[2022-11-12] MEDS: ATORVASTATIN 10 MG TAB PO SCH (22:02)
[2022-11-12] MEDS: FINASTERIDE 5 MG TAB PO SCH (22:03)
[2022-11-12] MEDS: QUEtiapine FUMARATE 25 MG TABLET PO SCH (22:03)
[2022-11-13] MEDS ORDERED: HALOPERIDOL LACTATE 5 MG/ML 1 ML VIAL ONE (01:02)
[2022-11-13] MEDS: OLANZapine 10 MG/2.1 ML SDV IM PRN (02:11)
[2022-11-13 04:09] LABS: A calco-baum cmplx NotReported Not Detected (NotDetected); Bact fragilis Not Reported Not Detected (NotDetected); C auris Not Reported Not Detected (NotDetected); Calbicans Not Reported Not Detected (NotDetected); Candida glabrata Not Reported Not Detected (NotDetected); Candida krusei Not Reported Not Detected (NotDetected); Cneoformans/gatti Not Reported Not Detected (NotDetected); Cparapsilosis Not Reported Not Detected (NotDetected); Ctropicalis Not Reported Not Detected (NotDetected); E cloacae compx Not Reported Not Detected (NotDetected); Efaecalis Not Reported Not Detected (NotDetected); Efaecium Not Reported Not Detected (NotDetected); Enterobacterales Not Reported Not Detected (NotDetected); Escherichia coli Not Reported Not Detected (NotDetected); H influenzae Not Reported Not Detected (NotDetected); K aerogenes Not Reported Not Detected (NotDetected); Koxytoca Not Reported Not Detected (NotDetected); Kpneumoniae grp Not Reported Not Detected (NotDetected); Lmonocyt Not Reported Not Detected (NotDetected); N meningitidis Not Reported Not Detected (NotDetected); P aeruginosa Not Reported Not Detected (NotDetected); Proteus spp Not Reported Not Detected (NotDetected); Salmonella spp Not Reported Not Detected (NotDetected); Smarcescens Not Reported Not Detected (NotDetected); Staph lugdunensis Not Reported Not Detected (NotDetected); Staph spp. Not Reported Not Detected (NotDetected); Staphaureus Not Reported Not Detected (NotDetected); Staphepi Not Reported Not Detected (NotDetected); Stenmaltophilia Not Reported Not Detected (NotDetected); Strep agal(GrpB) Not Reported Not Detected (NotDetected); Strep pneum Not Reported Not Detected (NotDetected); Strep pyog (GrpA) Not Reported Not Detected (NotDetected); Strep spp Not Reported Not Detected (NotDetected)
[2022-11-13] MEDS ORDERED: HALOPERIDOL LACTATE 5 MG/ML 1 ML VIAL IM STA (04:38)
[2022-11-13] MEDS: METOPROLOL TARTRATE 25 MG TAB PO SCH (08:34)
[2022-11-13] MEDS: ASPIRIN 81 MG ECTAB PO SCH (08:34)
[2022-11-13] MEDS: TAMSULOSIN HCL 0.4 MG CAP PO SCH (08:35)
[2022-11-13] MEDS: ISOSORBIDE MONO EXTENDED REL 30 MG TABCR PO SCH (08:35)
--- NOTE | 2022-11-13 15:00 | Discharge Summary ---
Date of Service November 13, 2022 Admission HPI Per Admitting Provider Mahesh Rodriguez is an 82 year old male with dementia who presents to the ER from [facility] with an unresponsive episode. At baseline reportedly he is mobile and conversational however difficult to understand him due to his slurred speech. Violetta called his today as the were unable to wake him and felt he wasn't responsive. This is very similar to his previous admission here from November 01 - 2022 which resolved without significant intervention and he was kept on the same dose of Seroquel on discharge. History obtained from his and son at bedside but is somewhat missing details as he has been seen mostly by outside providers and outside notes are not available on admission. As a back ground he has had dementia for many years which has been progressing. 1-2 years ago he had a sudden episode of slurred speech and was seen at [facility]. He was diagnosed with a TIA per family members although they aren't sure as it may have been a stroke. He never followed up with neurology following this. He has never been evaluated by neurology for his dementia. Eventually behaviors became violent with his dementia and he was hospitalized in [facility] approximately 5-6 weeks ago. He was started on Seroquel during this admission and has these unresponsive and sleeping all though the daytime episodes since although they are becoming much more frequent. They appear to be independent of his sleeping the previous night and family do not think it is due to a rearranged sleep wake cycle. Family report his mobility is good but he shuffles. Tremor noticed just recently at rest left hand > right although no current tremor noticed. In the ER CXR was mildly concerning for pneumonia and initially ER provider ordered antibiotics however these were discontinued prior to being given. He has not had fever, chills, chest pain, shortness of breath or cough. His family report his symptoms are exactly the same as his last admission here. He was referred to medicine for admission and ongoing management of unresponsive episode and dehydration. Of note his family have not been happy with the care he has been receiving at [facility] and wish to take him home on discharge. Admission Exam Per Admitting Provider Constitutional: well developed; + not well nourished and no acute distress Eyes: PERRL, conjunctivae normal, anicteric sclerae ENMT: Unable to assess mucous membranes as he does not open his mouth Neck: trachea midline, no thyromegaly Respiratory: normal respiratory effort, lungs clear to auscultation Cardiovascular: RRR, no murmur, no edema Gastrointestinal (Abdomen): normal bowel sounds, soft, nontender, no hepatosplenomegaly Neurologic: awake and + confused; + does not move all extremities (b/l upper extremities only) Motor/Sensory: no tremor Cranial Nerves: PERRL Mostly sleeping in bed but will open his eyes to voice. Slightly able to lift arms on command but unable to follow any complex commands. Cogwheel rigidity in bilateral upper extremities. No tremors noted at rest. Unable to assess pronator drift. Unable to assess sensation. Psychiatric: Orientation: alert; + not oriented x 3 Principal Diagnosis Altered Mental Status- Dementia Discharge Exam Constitutional WD/WN, vitals as above Eyes Anicteric sclera ENMT Moist mucous membranes Respiratory normal respiratory effort, lungs clear to auscultation Cardiovascular RRR, no murmur, no edema Gastrointestinal (Abdomen) normal bowel sounds, soft, nontender, no hepatosplenomegaly Skin no rashes, warm and dry Psychiatric Somnolent, resting comfortably Discharge Data Allergies Allergy/AdvReac Type Severity Reaction Status Date / Time No Known Allergies Allergy Mild Verified 11/10/22 15:03 Consultations 11/10/22 14:34 ED Decision to Admit Stat 11/10/22 20:19 Consult Palliative Care Routine Ordered Studies 11/10/22 12:41 CT head/brain wo con Stat 11/10/22 14:31 MRI Brain [MR brain seizure wo/w con] Routine Chest X-Ray 11/10/22 12:41 SINGLE VIEW CHEST CLINICAL HISTORY: Change in mental status. FINDINGS: An AP, portable, upright chest radiograph is compared to study dated 10/30/2022. The patient is status post midline sternotomy. The heart is enlarged noting atherosclerotic calcification of the thoracic aorta. The pulmonary vasculature is noncongested. Chronic interstitial thickening similar to previous. Airspace opacities are seen at the left lung base. Right lung is clear noting basilar atelectasis. No large pleural effusion or pneumothorax is identified. The skeletal structures are osteopenic. The bony thorax is grossly intact. Arthritic change is noted in the shoulders and spine. IMPRESSION: 1. Cardiomegaly without radiographic evidence of congestive failure. 2. There are airspace opacities at the left lung base. This could represent scarring/atelectasis versus an infectious/inflammatory pneumonitis. Clinical correlation will be required. ACT 112: Negative or not required by law. Electronically signed by: Von Burris M.D. 11/10/2022 1:[address] 11/10/22 12:41 CT SCAN OF THE BRAIN WITHOUT IV CONTRAST CLINICAL HISTORY: Change in mental status. COMPARISON STUDY: CT of the brain dated 10/30/2022. TECHNIQUE: Unenhanced axial CT scan of the brain is performed from the vertex to the skull base. A dose lowering technique was utilized adhering to the principles of ALARA. CT DOSE: 537.48 mGy.cm FINDINGS: Brain parenchyma: There is age-related involutional change noting moderate subcortical and periventricular microangiopathic disease. There is no hemorrhage, mass effect, or evidence of acute territorial ischemia by CT criteria. 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 Doss-white matter differentiation is preserved. No extra-axial fluid collection is seen. Ventricles, sulci, cisterns: Prominent secondary to involutional change. Intracranial vasculature: There is atherosclerotic calcification of the cavernous carotid and vertebral arteries. Calvarium: Unremarkable. Sinuses and mastoids: The visualized paranasal sinuses are clear. The mastoid air cells are well pneumatized. Orbits: The bony orbits are grossly intact. IMPRESSION: There is no hemorrhage, mass effect, or evidence of acute te rritorial ischemia by CT criteria. ACT 112: Negative or not required by law. Electronically signed by: Von Burris M.D. 11/10/2022 1:42 PM Brain MRI 11/10/22 14:31 MRI OF THE BRAIN COMBO CLINICAL HISTORY: Change in mental status. Unresponsiveness. Seizure. COMPARISON STUDY: CT of the brain performed earlier the same date 11/10/2022. TECHNIQUE: MRI of the brain was performed utilizing various T1 and T2-weighted sequences in the axial, sagittal, and coronal planes. Contrast-enhanced sequences were acquired following the administration of 9.5 cc of Gadavist. The examination was performed using the seizure protocol. FINDINGS: Brain parenchyma: There is age-related involutional change noting moderate to advanced confluent subcortical and periventricular microangiopathic disease. There is no hemorrhage or mass effect. There is no restricted diffusion to suggest acute ischemia. An 8 mm enhancing meningioma is seen along the right aspect of the posterior falx on axial image #17. No additional enhancing mass lesion is identified on the postcontrast images. Doss-white matter differentiation is preserved. Chronic lacunar infarcts are present within the basal ganglia. No extra-axial fluid collection is seen. The cerebellar tonsils are normal in configuration. Ventricles, sulci, and cisterns: Prominent secondary to involutional change. Pituitary and sella: Unremarkable. Intracranial vasculature: Normal flow voids are maintained at the skull base. Orbits: The bony orbits are grossly intact. Orbital contents are normal in ap pearance. Sinuses and mastoids: There is a 10 mm retention cyst in the right maxillary antrum. The remaining paranasal sinuses and mastoid air cells are clear. Calvarium: Unremarkable. Cervical cord: Partially visualized cervical spinal cord is normal in morphology and signal intensity. IMPRESSION: Chronic changes as above with no acute intracranial abnormality. ACT 112: Negative or not required by law. Electronically signed by: Von Burris M.D. 11/10/2022 5:14 PM Hospital Course (1) Advanced care planning/counseling discussion: (2) Dementia: (3) Cogwheel rigidity: Plan Unresponsive Episode/Altered Mental Status Patient presented with episodes of unresponsiveness. Suspect his increased sleepiness was due to Seroquel atop worsening end stage dementia, however also have suspicion that dehydration also precipitated the events. His diagnosis of dementia likely contributing towards progression of hypersomnia/transient episodes of unresponsiveness. Antipsychotics may be making mobility worse. During prior admissions, patient remained less responsive/interactive. He had brief moments of increased agitation during admission, however responded quickly to PRN medications. Recommend continuing to encourage PO fluid intake to prevent dehydration which may contribute to altered mental status. Palliative Care consulted and assisted with care while here: 1. Would consider increasing Seroquel as first option 2. Next step would be initiating Q4H Zyprexa if needed 3. Palliative care discussed starting monthly IM Haldol, would recommend this as later option due to concern for worsening hypersomnia Discharge Planning Issues After extensive conversations with team and with Palliative discussions, family hoping for dementia unit placement. Discussed realistic expectations Patient's family decided on [facility] and [facility]. Abnormal CXR He did have an abnormal chest x-ray on admission, however there was low suspicion of pneumonia. WBC and procalcitonin negative. Respiratory status stable during length of stay. Dehydration Cr 1.49 from baseline 1.23. Received IV fluids on admission, encouraged PO intake. Recommended at least 60 ounces of liquids daily to prevent dehydration and related possible delirium. Total Time Total Time Spent Total Time Spent (In Minutes): . Discharge Plan Discharge Items Patient Disposition: Personal Snf Reason For Visit: UNRESPONSIVE EPISODES Discharge Diagnosis: Dementia- Unresponsive Episodes Activity: Per Instructions section Non-emergency contact: Primary Care Provider Call non-emergency contact if: you have any medication questions and your symptoms worsen Follow-up/Referrals: Violetta Ohiopyle [Primary Care Provider] - Diet: Regular Diet Texture: Pureed (blended smooth) Addtl Attending Provider Instructions: Unresponsive Episode/Altered Mental Status -Suspect his increased sleepiness was due to Seroquel atop worsening end stage dementia -Dementia likely contributing towards progression of hypersomnia/transient episodes of unresponsiveness. Antipsychotics may be making mobility worse. -During prior admissions, patient remained less responsive/interactive in comparison to significant agitation during current admission -Palliative Care consulted and assisted with care while here: -Would consider increasing Seroquel as first option -Next step would be initiating Q4H Zyprexa if needed -Palliative care discussed starting monthly IM Haldol, would recommend this as later option due to concern for worsening hypersomnia Discharge Planning Issues -Per Palliative discussions, family hoping for dementia unit placement -Patient's family decided on [facility] and [facility] Abnormal CXR -Low suspicion of pneumonia., no worsening of respiratory symptoms during admission -WBC and procalcitonin negative Dehydration -Cr 1.49 on admission from baseline 1.2-1.3 -At discharge, BUN 20/Cr 1.34 -LR 2L @ 125ml/hr received on admission, encourage PO intake Dementia -Never had neurological evaluation, but presentation consistent with advanced dementia -Longstanding for > 1 year Pending Studies at Discharge: No Stand-Alone Forms: My Auto I.D., Smoking Cessation Skilled Items Patient informed of condition?: Yes DNR: Yes Discharge Level of Care: Skilled Communicable Disease: No Discharge Prognosis: Stable Lines: None Urinary Catheter: No Medications and DC Order Prescriptions: Continued quetiapine [Seroquel] 25 mg Tablet See Rx Instructions .ROUTE .COMPLEX Rx Instructions: Take 25mg in AM and 50 mg HS sennosides [senna] 8.6 mg Tablet 17.2 mg PO HS PRN (Reason: Constipation) acetaminophen [Tylenol] 325 mg Tablet 650 mg PO Q6H PRN (Reason: PAIN/FEVER > 101F) atorvastatin 10 mg Tablet 10 mg PO HS isosorbide mononitrate 30 mg Tablet Extended Release 24 Hr 30 mg PO QAM olanzapine 2.5 mg Tablet 2.5 mg PO Q6H PRN (Reason: AGITATION/AGGRESSION) aspirin 81 mg Tablet,Delayed Release (Dr/Ec) 81 mg PO QAM tamsulosin [Flomax] 0.4 mg Capsule 0.4 mg PO QAM finasteride 5 mg Tablet 5 mg PO HS metoprolol tartrate 25 mg Tablet 12.5 mg PO BID Discharge Orders: Discharge Order (Routine); Ordered 11/13/22 Ordered By: Charo Resendez Admission Data Admit Date/Time: 11/10/22 14:37 Attending Provider: Lance Sierra Admit Provider: Willis Mauro [facility] Other Providers: Willis Mauro ; Fariha Jarvis Other Interventions: Discharge Summary Assessment (RN) Last Done: 11/13/22 13:35 Supervising Physician Co-Signing Physician Notes I personally examined the patient and verified all welsh points of history and exam, discussed case, and agree with decision making with Dr Resendez No meaningful HPI review of systems obtainable. Vitals noted, calm and resting whenever I see him, no distress. Breathing unlabored no accessory muscle use cardio is regular without rubs murmurs or gallops and lungs are clear. Skin shows no rashes no pallor or icterus. Delirium superimposed on dementiadelirium likely from dehydration. To return to personal care with hospice. Stable for transfer today. Otherwise as above Resident Activity Tracking Resident Involvement: Resident Care Provided Care Provided: Adult Hospital Medicine
--- NOTE | 2022-11-13 18:22 | Billing Data ---
Date of Service November 13, 2022 Coding Level of Care Code 43351 IN/OBS DISCH 30 MIN/LESS
== END 2022-11-13 15:00 | disposition home or self-care (01) ==
LOC: ED 12:32 → 2W 14:37 → INTOOBSV 14:37 → SUATTDRO 14:37 → 2W 16:52